=== PATIENT | female | born 1975 ===

== ENCOUNTER 2020-05-31 09:07 | Outpatient (REF) | payer MEDICARE, OTHER, SELFPAY ==
--- NOTE | 2020-05-31 | CT_ITS ---
EXAMINATION: CT CHEST WITHOUT CONTRAST CLINICAL INFORMATION: Solitary pulmonary nodule. COMPARISON: CT chest 05/31/2020 TECHNIQUE: Multidetector volumetric CT imaging of the chest was done. Axial MIP volume rendering provided. Sagittal and coronal reformatted images were obtained. This CT examination was performed using dose optimization techniques as appropriate, variously including the following: *Automated exposure control *Adjustment of mA and/or kV according to patient size (this includes techniques or standardized protocols for targeted exams where dose is matched to indication/reason for exam; i.e. extremities or head) *Use of iterative reconstruction technique DLP: 128 mGy-cm FINDINGS: ASSISTANT WINEMAKER: Unremarkable. LUNGS: The lungs are well expanded and clear of acute pneumonic consolidation. There is a 4 mm nodule left lung base image 449/7, stable. No additional lymph nodes seen. Mild atelectatic changes seen in the left lung base, lingula and right lower lobe. MEDIASTINUM: The thyroid lobes are symmetrical and normal. The central trachea and the bronchi are widely patent. Heart size and the great vessels are normal caliber. No abnormal size mediastinal lymph nodes or mass seen. There is no pericardial effusion. PLEURA: There is no pleural effusion. No pleural mass or thickening. AXILLA: There are small shotty lymph nodes in the axilla. There is a small loop recorder or a demand pacer in the left anterior chest wall. UPPER ABDOMEN: Visualized liver, spleen, pancreas and bilateral adrenal glands are unremarkable. OSSEOUS STRUCTURES: No lytic or sclerotic process seen. CT/CT chest wo con IMPRESSION: Stable 4 mm nodule left lung base. As per Fleischner guidelines there is no follow up needed. If patient has high risk factors. Followup can be performed in 18-24 months.
== END 2020-05-31 09:08 | disposition home or self-care (01) ==
LOC: HO.CT 09:07
PROVIDERS: Visit Provider Hospitalist
DX: R91.1 Solitary pulmonary nodule (principal)
CPT/HCPCS: 71250

== ENCOUNTER → 2021-03-24 09:25 | Outpatient (BNVA) | payer OTHER, MEDICARE, SELFPAY | PROVIDERS: PCP Internal Medicine; Visit Provider Hospitalist | DX: M35.02 Sjogren syndrome with lung involvement (principal); R63.4 Abnormal weight loss; R91.1 Solitary pulmonary nodule; D64.9 Anemia, unspecified; R10.12 Left upper quadrant pain; Z79.899 Other long term (current) drug therapy | CPT/HCPCS: 99212 ==

== ENCOUNTER 2021-08-27 09:24 | Day surgery (SDC) | payer OTHER, MEDICARE, SELFPAY ==
[2021-08-27] VITALS (8 sets, daily range): BP systolic 119–150; BP diastolic 69–90; PULSE 70–86; RESP 16–18; TEMP 37.4–37.8; O2SAT 99–100; BMI 22.4
--- NOTE | ~2021-08-27 | FL_ITS ---
EXAMINATION: XR LUMBAR PUNCTURE CLINICAL INFORMATION: Sjogren's syndrome with lung involvement. COMPARISON: None. TECHNIQUE: Patient is very anxious and preferred IV sedation or relaxation blood patch. A blood patch cannot be performed immediately after lumbar puncture and was explained in detail by me and the chief of anesthesia. Following explaining fluoroscopy-guided lumbar puncture procedure, benefits and risks, a written consent was obtained. Patient was placed prone on the fluoroscopy table and low back area was cleaned and draped in the usual sterile manner. 1% lidocaine was injected overlying the L4-L5 disc level. A 22-gauge spinal needle was inserted from the skin intrathecally at the L4-L5 disc level under fluoroscopy. The stylet was removed and CSF was collected in 4 test tubes. Postprocedure stylet was reintroduced and needle withdrawn. Sterile Band-Aid applied postprocedure. Patient tolerated procedure extremely well. Conscious sedation was utilized during exam with 25 mcg of fentanyl and 1 mg of Versed and patient monitored for 1 hour during the exam by the radiologist and the IR nurse. Patient tolerated procedure extremely well. FINDINGS: On several images obtained under fluoroscopy, the visualized vertebral heights, alignment and disc heights are normal. A left paramidline approach needle placed at L4-L5 disc level. Approximately 15.5 mL of clear CSF fluid was collected in 4 test tubes and sent to lab as per referring physician orders. FLUOROSCOPY TIME: 0.9 minutes. DOSE AREA PRODUCT: 2.136 uGy-m2 (microgray-meter squared). FL/FL guided lumbar puncture LP IMPRESSION: Successful fluoroscopy-guided L4-L5 lumbar puncture performed. CSF collected was sent to lab as per referring physician's orders. After procedure was done, instructions were given to the patient, in case patient developed a headache, to come to the ER and a blood patch will be performed later by anesthesia.
[2021-08-27 09:57] LABS: UPreg QC Valid YES
[2021-08-27 09:58] LABS: Urine Pregnancy NEGATIVE (NEGATIVE)
[2021-08-27 10:25] LABS: MANUAL DIFF FLAG NO
[2021-08-27 10:27] LABS: Basophils Percent Auto 0.8 % (0-2); Eosinophils Absolute Auto 0.2 X10*3/uL (0.0-0.4); Eosinophils Percent Auto 4.5 % (0-4); Hematocrit 33.7 % (37.0-47.0); Hemoglobin 10.6 g/dl (12.0-16.0); Imm Gran Abs Auto 0.01 X10*3/uL (0.00-0.03); Imm Gran Pct Auto 0.2 % (0.0-0.4); Lymphocytes Absolute Auto 1.8 X10*3/uL (1.2-4.9); Lymphocytes Percent Auto 34.5 % (20-40); Mean Corpuscular HGB Conc 31.5 g/dl (31.0-35.0); Mean Corpuscular Hemoglobin 26.8 pg (27.0-33.0); Mean Corpuscular Volume 85.1 fL (80.0-98.0); Mean Platelet Volume 9.6 fL (9.4-12.3); Monocytes Absolute Auto 0.5 X10*3/uL (0.1-1.2); Monocytes Percent Auto 10.2 % (2-11); Neutrophils Absolute Auto 2.5 x10*3/uL (2.0-8.3); Neutrophils Percent Auto 49.8 % (45-73); Platelet Count 388 X10*3/uL (160-400); Red Blood Count 3.96 X10*6/uL (4.20-5.50); Red Cell Distribution Width 13.2 % (11.0-16.0); White Blood Count 5.1 X10*3/uL (4.8-10.8)
[2021-08-27 10:35] LABS: Prothrombin Time 11.2 SEC (9.9-13.0)
[2021-08-27 10:37] LABS: Partial Thromboplastin Time 47.1 SEC (24.1-38.0)
[2021-08-27 13:22] LABS: Glucose CSF 54 mg/dL
[2021-08-27 13:31] LABS: CSF Appearance Clear, Colorless; CSF Tube # 3
[2021-08-27] MEDS: oxyCODONE HCl Immed Release 5 MG TABLET PO (13:34)
[2021-08-27] MEDS: Lactated Ringers 1,000 ML 999 ML IV (13:36)
[2021-08-27 14:15] LABS: Appearance CSF CLEAR; CSF Tube # 1
[2021-08-27 14:16] LABS: Color CSF COLORLESS; Lymphocytes CSF 88 %; Neutrophils CSF 6 %; Red Blood Cell CSF 125 MM*3; White Blood Cell CSF 13 MM*3
[2021-08-27 14:17] LABS: Appearance CSF CLEAR; CSF Monos 3 %; CSF Monos 6 %; CSF Tube # 3; Color CSF COLORLESS; Lymphocytes CSF 96 %; Neutrophils CSF 15 %; Red Blood Cell CSF 3 MM*3; White Blood Cell CSF 6 MM*3
[2021-09-09 13:22] LABS: Albumin, CSF 21.1 mg/dL (8.0-42.0); IgG, CSF 1.7 mg/dL (0.8-7.7)
== END 2021-08-27 15:34 | disposition home or self-care (01) ==
PROVIDERS: Absent Provider Nurse Practitioner Family; PCP Internal Medicine; Visit Provider Radiology Diagnostic Radiology
PROC: 009U3ZZ Drainage of Spinal Canal, Percutaneous Approach (ICD-10-PCS; CPT 62270; principal; 2021-08-27 11:00)
DX: M35.02 Sjogren syndrome with lung involvement (principal); R63.4 Abnormal weight loss; Z68.22 Body mass index [BMI] 22.0-22.9, adult; R51.9 Headache, unspecified; R91.1 Solitary pulmonary nodule; D64.9 Anemia, unspecified; R10.12 Left upper quadrant pain; Z80.1 Family history of malignant neoplasm of trachea, bronchus and lung; Z79.899 Other long term (current) drug therapy
CPT/HCPCS: 36415; 62328; 81025; 82042; 82945; 85025; 85610; 85730; 87015; 87070; 87205; 89051; J2250; J3010

== ENCOUNTER → 2021-09-25 09:25 | Outpatient (BNVA) | payer OTHER, MEDICARE, SELFPAY | PROVIDERS: PCP Internal Medicine; Visit Provider Nurse Practitioner Family ==

== ENCOUNTER → 2021-12-25 09:28 | Outpatient (BNVA) | payer OTHER, MEDICARE, SELFPAY | PROVIDERS: PCP Internal Medicine; Visit Provider Nurse Practitioner Family | DX: Z13.89 Encounter for screening for other disorder (principal) ==

== ENCOUNTER → 2022-05-20 08:49 | Outpatient (BNVA) | payer OTHER, MEDICARE, SELFPAY | PROVIDERS: PCP Internal Medicine; Visit Provider Hospitalist | DX: J45.40 Moderate persistent asthma, uncomplicated (principal); Z23 Encounter for immunization; M35.02 Sjogren syndrome with lung involvement; R91.1 Solitary pulmonary nodule; R10.12 Left upper quadrant pain | CPT/HCPCS: 90471; 90686 ==

== ENCOUNTER → 2022-11-17 08:54 | Outpatient (BNVA) | payer OTHER, MEDICARE, SELFPAY | PROVIDERS: PCP Internal Medicine; Visit Provider Hospitalist | DX: J45.40 Moderate persistent asthma, uncomplicated (principal); M35.02 Sjogren syndrome with lung involvement; R91.1 Solitary pulmonary nodule; R63.4 Abnormal weight loss; D64.9 Anemia, unspecified; R10.12 Left upper quadrant pain; Z23 Encounter for immunization | CPT/HCPCS: 99212 ==

== ENCOUNTER 2023-05-25 09:13 | Outpatient (AMB) | payer OTHER, MEDICARE, SELFPAY ==
[2023-05-25 09:19] VITALS: BP 132/70; PULSE 64; O2SAT 100; BMI 21.0
--- NOTE | 2023-05-25 09:19 | A.OFFVIS_ITS ---
Intake Vital Signs 05/25/23 09:19 Height 5 ft 6 in Weight 130 lb 1.164 oz BMI 21.0 BP 132/70 Blood Pressure Location Lt brachial Position Sitting Pulse 64 Pulse Source Pulse Oximeter Pulse Oximetry (%) 100 Oxygen Delivery Method Room Air Intake Visit Reasons: COPD Cosmetic Consultant Required: No Allergies prednisone Allergy (Severe, Verified 05/25/23 09:21) Hallucinations HPI HPI Comments History of Present Illness Details The patient is a 48-year-old woman with a known history of Sjogren's on CellCept. She also has had issues with significant obstructive airway disease suggesting bronchiolitis. She has responded very well to the nebulized therapy. Patient also has pulmonary nodules. She did undergo pulmonary function studies recently that we looked in the office. It appears that her obstructive airway disease significantly improved. However, she states that her breathing has gotten worse now in these really cold frigid days. We did review her CT scan of the chest demonstrating stable 4 mm pulmonary nodule. The patient also on review her CT scans as other smaller nodules will continue monitoring them closely. She does have a history of lung cancer in the family and she is concerned about that. Patient has been a lifelong nonsmoker. She continues to have oral lesions. These lesions appear to be likely related to her connective tissue disease. The patient does get some relief from the magic mouthwash. However, she could also try hydrocortisone rinses to try to minimize irritation. She has had oral candidiasis in the past however. She is currently taking prophylactic fluconazole. ?04/14/2020 the patient is here for pulmonary follow-up visit. Overall she is doing well from a respiratory status. She does require her nebulized therapies regularly otherwise she starts becomes symptomatic. She does complaint of cough times and also some dyspnea on exertion. She has a hard time caring any objective because of increasing shortness of breath as well. She had her CellCept increased to 2 g a day due to her GI issues. Talk to be adding pancreatitis. In the meantime she has been dealing with headaches that is still not clear. She was started on medication for that as well. We did review her CT scan of the chest demonstrating 4 mm pulmonary nodule. Will plan to repeat the CT scan sometime this year. 11/17/2022 the patient is here for pulmonary follow-up visit. Overall she is doing okay. She is noticing episodes of chest congestion. Moderate severity. Intermittent. She responds well to the nebulized therapy specially the albuterol with ipratropium. She is no longer using the performance. She does continue to use the budesonide. The patient has been walking regularly. She has not had any recent imaging studies. She has not been on her immunosuppressant therapy which is reassuring. She is concerned about her worsening cough. She did try singular did help some. Therefore will going to go ahead and started. Will to also do allergy testing. The patient may be a good candidate for biologic therapy. 05/25/2023 the patient is here for a pulmonary follow-up visit. Since last we saw she had been doing fairly well. She did receive an IV infusion of NAD+ for 6 weeks which she felt that provide her better health and mental clearing. Patient subsequently stop all her medications except for her respiratory inhalers. For the last few days she has been noticing increasing chest tightness wheezing and cough. She attributes to the change in season. We did look at her blood work and she is highly allergic to mold, R10 area. Likely due to the fall in the wet leaves that are likely worsening does allergies. She did try the DuoNeb but it caused her to have more dryness. Therefore will go ahead and switch her over to albuterol. The patient also does better on Ventolin inhaler as opposed to ProAir. I will send their doctor the pharmacy. She does have some congestion and a prolonged expiratory phase with some wheezing. Therefore she will also get a Z-Luis M and a Medrol pack. She is reluctant to use any steroids so therefore she will just hold off on the Medrol for now unless she gets worse. [facility] Medical History Anemia Asthma LUQ pain Pulmonary nodule Sjogren's syndrome with lung involvement Weight loss Surgical History H/O shoulder surgery Family History Father Asthma Cancer HTN (hypertension) Mother Thyroid disease Osteoporosis Social History (Updated 06/02/22 @ 14:24 by Ruthy Roa CMA) Household Members: Family Alcohol intake: former Patient Tobacco Use Status: Never used Tobacco Second Hand Smoke Exposure: No Current occupational status: disabled Review of Systems Const Denies night sweats and Reports weight gain ENT Denies change in voice, Denies lip swelling, Denies mouth pain, Reports nasal congestion, Reports nasal discharge and Denies tongue swelling Card Denies chest pain and Reports dyspnea on exertion Resp Reports chest congestion, Reports cough, Reports dyspnea on exertion and Reports wheezing GI Reports abdominal pain and Reports nausea Musc Denies no additional complaints Neuro Denies Neuro-related abnormal movements Psych Denies no additional complaints Sherwin/Lymph Denies easy bleeding and Denies lymphadenopathy Aller/Immun Denies lip swelling, Denies tongue swelling and Reports wheezing Physical Exam Vital Signs: Last Vital Signs Pulse 64 05/25/23 09:19 BP 132/70 05/25/23 09:19 Pulse Ox 100 05/25/23 09:19 Oxygen Delivery Method Room Air 05/25/23 09:19 BMI result Body Mass Index 21.0 Const General: alert Neck Neck: Yes normal visual inspection, Yes full ROM and Yes no lymphadenopathy Chest Chest palpation & inspection: normal inspection of the chest Resp Effort & Inspection: normal respiratory effort and prolonged expiratory phase Auscultation: wheezes and diminished lung sounds Cardio Rate: regular rate Rhythm: regular rhythm Heart sounds: S1 normal heart sound present and S2 normal heart sound present GI Palpation (GI): Soft to palpation and nontender Auscultation: normal bowel sounds General: Yes no CVA tenderness Back/Spine/Pelvis Back: no CVA tenderness Skin General skin exam: rashes and/or lesions noted Assessment & Plan Assessment & Plan (1) Asthma: Code(s): J45.909 - Unspecified asthma, uncomplicated Qualifiers: Asthma complication type: with acute exacerbation Asthma persistence: persistent Asthma severity: moderate Qualified Code(s): J45.41 - Moderate persistent asthma with (acute) exacerbation (2) Sjogren's syndrome with lung involvement: Code(s): M35.02 - Sjogren syndrome with lung involvement (3) Weight loss: Code(s): R63.4 - Abnormal weight loss (4) Pulmonary nodule: Code(s): R91.1 - Solitary pulmonary nodule Plan holding BUdesonide stop Duoneb2 start albuterol start zpack Medrol pack if no better hypertonic saline via neb followed by CPT with acapella valve KULWINDER as needed stopped Singulair (drying) F/U 4-6 months Medications: New azithromycin 500 mg PO DAILY 5 days 5 tabs 0RF sodium chloride 3% 4 mL inhalation BID 30 days 240 mL 11RF albuterol sulfate 2.5 mg (3 mL) inhalation Q4H 30 days PRN 360 mL 11RF shortness of breath or wheezing albuterol sulfate 90 mcg/actuation (Ventolin HFA) 2 puffs inhalation QID 30 days PRN 18 grams 11RF shortness of breath or wheezing methylprednisolone (Medrol (Luis M)) PO PER PKG DIR 6 days 21 ea 0RF Coding Level of Care Code Est Pt Level 4 (07925) Diagnoses Moderate persistent asthma with acute exacerbation J45.41 Asthma complication type: with acute exacerbation Asthma persistence: persistent Asthma severity: moderate Sjogren's syndrome with lung involvement M35.02 Weight loss R63.4 Pulmonary nodule R91.1 Time Spent (min) 17
== END 2023-05-25 09:53 | disposition home or self-care (01) ==
PROVIDERS: PCP Internal Medicine; Visit Provider Hospitalist
DX: J45.41 Moderate persistent asthma with (acute) exacerbation (principal); M35.02 Sjogren syndrome with lung involvement; R63.4 Abnormal weight loss; R91.1 Solitary pulmonary nodule
CPT/HCPCS: 99214

== ENCOUNTER → 2023-05-25 09:13 | Outpatient (BNVA) | payer OTHER, MEDICARE, SELFPAY | PROVIDERS: PCP Internal Medicine; Visit Provider Hospitalist | DX: J45.909 Unspecified asthma, uncomplicated (principal); Z23 Encounter for immunization ==

== ENCOUNTER 2023-11-30 09:11 | Outpatient (AMB) | payer OTHER, MEDICARE, SELFPAY ==
--- NOTE | 2023-11-30 09:13 | A.OFFVIS_ITS ---
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 She also has had issues with significant obstructive airway disease suggesting bronchiolitis. She has responded very well to the nebulized therapy. Patient also has pulmonary nodules. She did undergo pulmonary function studies recently that we looked in the office. It appears that her obstructive airway disease significantly improved. However, she states that her breathing has gotten worse now in these really cold frigid days. We did review her CT scan of the chest demonstrating stable 4 mm pulmonary nodule. The patient also on review her CT scans as other smaller nodules will continue monitoring them closely. She does have a history of lung cancer in the family and she is concerned about that. Patient has been a lifelong nonsmoker. She continues to have oral lesions. These lesions appear to be likely related to her connective tissue disease. The patient does get some relief from the magic mouthwash. However, she could also try hydrocortisone rinses to try to minimize irritation. She has had oral candidiasis in the past however. She is currently taking prophylactic fluconazole. ?04/14/2020 the patient is here for pulmonary follow-up visit. Overall she is doing well from a respiratory status. She does require her nebulized therapies regularly otherwise she starts becomes symptomatic. She does complaint of cough times and also some dyspnea on exertion. She has a hard time caring any objective because of increasing shortness of breath as well. She had her CellCept increased to 2 g a day due to her GI issues. Talk to be adding pancreatitis. In the meantime she has been dealing with headaches that is still not clear. She was started on medication for that as well. We did review her CT scan of the chest demonstrating 4 mm pulmonary nodule. Will plan to repeat the CT scan sometime this year. 11/17/2022 the patient is here for pulmonary follow-up visit. Overall she is doing okay. She is noticing episodes of chest congestion. Moderate severity. Intermittent. She responds well to the nebulized therapy specially the albuterol with ipratropium. She is no longer using the performance. She does continue to use the budesonide. The patient has been walking regularly. She has not had any recent imaging studies. She has not been on her immunosuppressant therapy which is reassuring. She is concerned about her wor sening cough. She did try singular did help some. Therefore will going to go ahead and started. Will to also do allergy testing. The patient may be a good candidate for biologic therapy. 05/25/2023 the patient is here for a pulmonary follow-up visit. Since last we saw she had been doing fairly well. She did receive an IV infusion of NAD+ for 6 weeks which she felt that provide her better health and mental clearing. Patient subsequently stop all her medications except for her respiratory inhalers. For the last few days she has been noticing increasing chest tightness wheezing and cough. She attributes to the change in season. We did look at her blood work and she is highly allergic to mold, R10 area. Likely due to the fall in the wet leaves that are likely worsening does allergies. She did try the DuoNeb but it caused her to have more dryness. Therefore will go ahead and switch her over to albuterol. The patient also does better on Ventolin inhaler as opposed to ProAir. I will send their doctor the pharmacy. She does have some congestion and a prolonged expiratory phase with some wheezing. Therefore she will also get a Z-Luis M and a Medrol pack. She is reluctant to use any steroids so therefore she will just hold off on the Medrol for now unless she gets worse. 11/30/2023 the patient is here for a pulmonary follow-up visit overall she has been she has been walking regularly and exercising. She has been using her rescue inhaler. Ventolin seems to be the only rescue inhaler that works well for her. Unfortunately her insurance not covering it. In addition to that albuterol treatments with the neb via the nebulizer actually become the most effective way of treating her asthma. The patient would benefit from like a mesh nebulizer. She will look into them as far as an investment. I do believe that if she can get a much nebulizer she can get a rapid treatment with an albuterol ampule and better response to therapy. The patient has not had any imaging studies this time. She did have abdominal discomfort several weeks ago the were severe that kept her bed-bound for about 3 days. I did encourage her to seek medical advice when that happens because she will need to rule out other etiologies that will require immediate attention. She is following closely with dermatology. She still continues to be off all immunomodulator therapy and immunosuppressive therapy and just been treating herself with holistic approaches. The patient will undergo blood work in addition to that will start using the mesh nebulizer. She will follow-up in 6 months or sooner if she develops any worsening symptoms. [facility] Medical History Anemia Asthma LUQ pain Pulmonary nodule Sjogren's syndrome with lung involvement Weight loss Surgical History H/O shoulder surgery Family History Father Asthma Cancer HTN (hypertension) Mother Thyroid disease Osteoporosis Social History (Updated 06/02/22 @ 14:24 by Ruthy Roa CMA) Household Members: Family Alcohol intake: former Patient Tobacco Use Status: Never used Tobacco Second Hand Smoke Exposure: No Current occupational status: disabled Review of Systems Const Denies night sweats and Reports weight gain ENT Denies change in voice, Denies lip swelling, Denies mouth pain, Reports nasal congestion, Reports nasal discharge and Denies tongue swelling Card Denies chest pain and Reports dyspnea on exertion Resp Reports chest congestion, Reports cough, Reports dyspnea on exertion and Reports wheezing GI Reports abdominal pain and Reports nausea Musc Denies no additional complaints Neuro Denies Neuro-related abnormal movements Psych Denies no additional complaints Sherwin/Lymph Denies easy bleeding and Denies lymphadenopathy Aller/Immun Denies lip swelling, Denies tongue swelling and Reports wheezing Physical Exam Vital Signs: Last Vital Signs Pulse 61 11/30/23 09:15 Pulse Ox 100 11/30/23 09:15 Oxygen Delivery Method Room Air 11/30/23 09:15 BMI result Body Mass Index 21.0 Const General: alert Neck Neck: Yes normal visual inspection, Yes full ROM and Yes no lymphadenopathy Chest Chest palpation & inspection: normal inspection of the chest Resp Effort & Inspection: normal respiratory effort and prolonged expiratory phase Auscultation: clear to auscultation bilaterally and no wheezes Cardio Rate: regular rate Rhythm: regular rhythm Heart sounds: S1 normal heart sound present and S2 normal heart sound present GI Palpation (GI): Soft to palpation and nontender Auscultation: normal bowel sounds General: Yes no CVA tenderness Back/Spine/Pelvis Back: no CVA tenderness Skin General skin exam: rashes and/or lesions noted Assessment & Plan Assessment & Plan (1) Asthma: Code(s): J45.909 - Unspecified asthma, uncomplicated Category: Medical Qualifiers: Asthma complication type: uncomplicated Asthma persistence: persistent Asthma severity: moderate Qualified Code(s): J45.40 - Moderate persistent asthma, uncomplicated (2) Sjogren's syndrome with lung involvement: Code(s): M35.02 - Sjogren syndrome with lung involvement Category: Medical (3) Weight loss: Code(s): R63.4 - Abnormal weight loss Category: Medical (4) Pulmonary nodule: Code(s): R91.1 - Solitary pulmonary nodule Category: Medical (5) Anemia: Code(s): D64.9 - Anemia, unspecified Category: Medical Qualifiers: Anemia type: unspecified type Qualified Code(s): D64.9 - Anemia, unspecified (6) LUQ pain: Code(s): R10.12 - Left upper quadrant pain Category: Medical Plan start albuterol with mesh nebulizer hypertonic saline via neb followed by CPT with acapella valve KULWINDER as needed stopped Singulair (drying) bloodwork F/U 4-6 months Orders: Orders 2 Immunoglobulin E Today D64.9 - Anemia, unspecified, M35.02 - Sjogren syndrome with lung involvement, R10.12 - Left upper quadrant pain Lactate Dehydrogenase Today D64.9 - Anemia, unspecified, M35.02 - Sjogren syndrome with lung involvement, R10.12 - Left upper quadrant pain Lactic Acid Today D64.9 - Anemia, unspecified, M35.02 - Sjogren syndrome with lung involvement, R10.12 - Left upper quadrant pain Immunoglobulins,IgG IgA IgM Today D64.9 - Anemia, unspecified, M35.02 - Sjogren syndrome with lung involvement, R10.12 - Left upper quadrant pain Coding Level of Care Code Est Pt Level 4 (38904) Diagnoses Moderate persistent asthma without complication J45.40 Asthma complication type: uncomplicated Asthma persistence: persistent Asthma severity: moderate Sjogren's syndrome with lung involvement M35.02 Weight loss R63.4 Pulmonary nodule R91.1 Anemia, unspecified type D64.9 Anemia type: unspecified type LUQ pain R10.12 Time Spent (min) 17
[2023-11-30 09:15] VITALS: PULSE 61; O2SAT 100; BMI 21.0
== END 2023-11-30 09:41 | disposition home or self-care (01) ==
PROVIDERS: PCP Internal Medicine; Visit Provider Hospitalist
DX: J45.40 Moderate persistent asthma, uncomplicated (principal); M35.02 Sjogren syndrome with lung involvement; R63.4 Abnormal weight loss; R91.1 Solitary pulmonary nodule; D64.9 Anemia, unspecified; R10.12 Left upper quadrant pain
CPT/HCPCS: 99214

== ENCOUNTER → 2023-11-30 09:11 | Outpatient (BNVA) | payer OTHER, MEDICARE, SELFPAY | PROVIDERS: PCP Internal Medicine; Visit Provider Hospitalist | DX: J45.909 Unspecified asthma, uncomplicated (principal); Z23 Encounter for immunization ==

== ENCOUNTER 2024-06-19 09:38 | Outpatient (AMB) | payer OTHER, MEDICARE, SELFPAY ==
[2024-06-19 09:39] VITALS: BP 128/78; PULSE 89; O2SAT 100
--- NOTE | 2024-06-19 09:39 | A.OFFVIS_ITS ---
Vital Signs 06/19/24 09:39 Weight 135 lb 9.349 oz BP 128/78 Blood Pressure Location Lt brachial Position Sitting Pulse 89 Pulse Source Pulse Oximeter Pulse Oximetry (%) 100 Oxygen Delivery Method Room Air Intake Visit Reasons: COPD Allergies prednisone Allergy (Severe, Verified 06/19/24 09:42) Hallucinations Medication List - Last Reconciled 06/19/24 by Ruthy Mullins, BERRY albuterol sulfate 2.5 mg (3 mL) inhalation Q4H PRN 30 days albuterol sulfate 90 mcg/actuation (Ventolin HFA) 2 puffs inhalation QID PRN 30 days [id number]-napzltqosdngt-[id number] 50-325-40 mg 1 tab PO Q6H PRN 30 days cyclosporine 0.05% (Restasis) drps ophthalmic (eye) dexmethylphenidate 10 mg PO BID formoterol fumarate (Perforomist) 20 mcg (2 mL) inhalation BID hydroxyzine HCl 25 mg PO BID PRN indomethacin 25 mg PO TID PRN 30 days ipratropium-albuterol 0.5 mg-3 mg(2.5 mg base)/3 mL 3 mL inhalation QID 30 days ipratropium-albuterol 20-100 mcg/actuation (Combivent Respimat) 1 puff inhalation QID 30 days melatonin ER 10 mg PO BEDTIME PRN methylphenidate HCl ER (Concerta) 54 mg PO DAILY PRN nebulizers As directed ondansetron HCl 4 mg PO Q8H PRN sodium chloride 3% 4 mL inhalation BID 30 days HPI Comments Details: The patient is a 49-year-old woman with a known history of Sjogren's on CellCept. She also has had issues with significant obstructive airway disease suggesting bronchiolitis. She has responded very well to the nebulized therapy. Patient also has pulmonary nodules. She did undergo pulmonary function studies recently that we looked in the office. It appears that her obstructive airway disease significantly improved. However, she states that her breathing has gotten worse now in these really cold frigid days. We did review her CT scan of the chest demonstrating stable 4 mm pulmonary nodule. The patient also on review her CT scans as other smaller nodules will continue monitoring them closely. She does have a history of lung cancer in the family and she is concerned about that. Patient has been a lifelong nonsmoker. She continues to have oral lesions. These lesions appear to be likely related to her connective tissue disease. The patient does get some relief from the magic mouthwash. However, she could also try hydrocortisone rinses to try to minimize irritation. She has had oral candidiasis in the past however. She is currently taking prophylactic fluconazole. ?04/14/2020 the patient is here for pulmonary follow-up visit. Overall she is doing well from a respiratory status. She does require her nebulized therapies regularly otherwise she starts becomes symptomatic. She does complaint of cough times and also some dyspnea on exertion. She has a hard time caring any objective because of increasing shortness of breath as well. She had her CellCept increased to 2 g a day due to her GI issues. Talk to be adding pancreatitis. In the meantime she has been dealing with headaches that is still not clear. She was started on medication for that as well. We did review her CT scan of the chest demonstrating 4 mm pulmonary nodule. Will plan to repeat the CT scan sometime this year. 11/17/2022 the patient is here for pulmonary follow-up visit. Overall she is doing okay. She is noticing episodes of chest congestion. Moderate severity. Intermittent. She responds well to the nebulized therapy specially the albuterol with ipratropium. She is no longer using the performance. She does continue to use the budesonide. The patient has been walking regularly. She has not had any recent imaging studies. She has not been on her immunosuppressant therapy which is reassuring. She is concerned about her worsening cough. She did try singular did help some. Therefore will going to go ahead and started. Will to also do allergy testing. The patient may be a good candidate for biologic therapy. 05/25/2023 the patient is here for a pulmonary follow-up visit. Since last we saw she had been doing fairly well. She did receive an IV infusion of NAD+ for 6 weeks which she felt that provide her better health and mental clearing. Patient subsequently stop all her medications except for her respir atory inhalers. For the last few days she has been noticing increasing chest tightness wheezing and cough. She attributes to the change in season. We did look at her blood work and she is highly allergic to mold, R10 area. Likely due to the fall in the wet leaves that are likely worsening does allergies. She did try the DuoNeb but it caused her to have more dryness. Therefore will go ahead and switch her over to albuterol. The patient also does better on Ventolin inhaler as opposed to ProAir. I will send their doctor the pharmacy. She does have some congestion and a prolonged expiratory phase with some wheezing. Therefore she will also get a Z-Luis M and a Medrol pack. She is reluctant to use any steroids so therefore she will just hold off on the Medrol for now unless she gets worse. 11/30/2023 the patient is here for a pulmonary follow-up visit overall she has been she has been walking regularly and exercising. She has been using her rescue inhaler. Ventolin seems to be the only rescue inhaler that works well for her. Unfortunately her insurance not covering it. In addition to that albuterol treatments with the neb via the nebulizer actually become the most effective way of treating her asthma. The patient would benefit from like a mesh nebulizer. She will look into them as far as an investment. I do believe that if she can get a much nebulizer she can get a rapid treatment with an albuterol ampule and better response to therapy. The patient has not had any imaging studies this time. She did have abdominal discomfort several weeks ago the were severe that kept her bed-bound for about 3 days. I did encourage her to seek medical advice when that happens because she will need to rule out other etiologies that will require immediate attention. She is following closely with dermatology. She still continues to be off all immunomodulator therapy and immunosuppressive therapy and just been treating herself with holistic approaches. The patient will undergo blood work in addition to that will start using the mesh nebulizer. She will follow-up in 6 months or sooner if she develops any worsening symptoms. 06/19/2024 the patient is here for a pulmonary follow-up been doing well from a respiratory status. Although now going into the winter months this is when her breathing gets a little tougher. She does have a nebulized solution available. The patient also has been avoiding any immunosuppressive therapy. She is dealing with her inflammatory flare-ups on her own. She is staying active with exercise. She is also pain a healthier diet. No recent imaging to review at this time. [facility] Medical History Anemia Asthma LUQ pain Pulmonary nodule Sjogren's syndrome with lung involvement Weight loss Surgical History H/O shoulder surgery Family History Father Asthma Cancer HTN (hypertension) Mother Thyroid disease Osteoporosis Social History (Updated 06/02/22 @ 14:24 by Ruthy Roa CMA) Household Members: Family Alcohol intake: former Patient Tobacco Use Status: Never used Tobacco Second Hand Smoke Exposure: No Current occupational status: disabled Review of Systems Const Denies night sweats ENT Denies change in voice, Denies lip swelling, Denies mouth pain, Reports nasal congestion, Reports nasal discharge and Denies tongue swelling Card Denies chest pain and Reports dyspnea on exertion Resp Denies chest congestion, Reports cough, Reports dyspnea on exertion and Reports wheezing GI Reports abdominal pain and Reports nausea Musc Denies no additional complaints Neuro Denies Neuro-related abnormal movements Psych Denies no additional complaints Sherwin/Lymph Denies easy bleeding and Denies lymphadenopathy Aller/Immun Denies lip swelling, Denies tongue swelling and Reports wheezing Physical Exam Vital Signs: Last Vital Signs Pulse 89 06/19/24 09:39 BP 128/78 06/19/24 09:39 Pulse Ox 100 06/19/24 09:39 Oxygen Delivery Method Room Air 06/19/24 09:39 Const General: alert Neck Neck: Yes normal visual inspection, Yes full ROM and Yes no lymphadenopathy Chest Chest palpation & inspection: normal inspection of the chest Resp Effort & Inspection: normal respiratory effort Auscultation: clear to auscultation bilaterally and no wheezes Cardio Rate: regular rate Rhythm: regular rhythm Heart sounds: S1 normal heart sound present and S2 normal heart sound present GI Palpation (GI): Soft to palpation and nontender Auscultation: normal bowel sounds General: Yes no CVA tenderness Back/Spine/Pelvis Back: no CVA tenderness Skin General skin exam: rashes and/or lesions noted Assessment & Plan Assessment & Plan (1) Asthma: Code(s): J45.909 - Unspecified asthma, uncomplicated Category: Medical Qualifiers: Asthma complication type: uncomplicated Asthma persistence: persistent Asthma severity: moderate Qualified Code(s): J45.40 - Moderate persistent asthma, uncomplicated (2) Sjogren's syndrome with lung involvement: Code(s): M35.02 - Sjogren syndrome with lung involvement Category: Medical (3) Pulmonary nodule: Code(s): R91.1 - Solitary pulmonary nodule Category: Medical (4) Anemia: Code(s): D64.9 - Anemia, unspecified Category: Medical Qualifiers: Anemia type: unspecified type Qualified Code(s): D64.9 - Anemia, unspecified (5) LUQ pain: Code(s): R10.12 - Left upper quadrant pain Category: Medical Plan albuterol with mesh nebulizer hypertonic saline via neb followed by CPT with acapella valve KULWINDER as needed lidoderm patch F/U 6-8 months Medications: New lidocaine 5% (Lidoderm) leave on most painful area for up to 12 hrs 1 patch topical DAILY 30 ea 5RF 30 days G89.12 - Acute post-thoracotomy pain Refilled sodium chloride 3% 4 mL inhalation BID 30 days 240 mL 11RF albuterol sulfate 2.5 mg (3 mL) inhalation Q4H PRN 360 mL 11RF shortness of breath or wheezing 30 days Discontinued formoterol fumarate (Perforomist) Discontinued Reason: Doctor's Order 20 mcg (2 mL) inhalation BID 120 mL 0RF Coding Level of Care Code Est Pt Level 4 (77466) Diagnoses Moderate persistent asthma without complication J45.40 Asthma complication type: uncomplicated Asthma persistence: persistent Asthma severity: moderate Sjogren's syndrome with lung involvement M35.02 Pulmonary nodule R91.1 Anemia, unspecified type D64.9 Anemia type: unspecified type LUQ pain R10.12 Time Spent (min) 16
== END 2024-06-19 10:00 | disposition home or self-care (01) ==
PROVIDERS: PCP Internal Medicine; Visit Provider Hospitalist
DX: J45.40 Moderate persistent asthma, uncomplicated (principal); M35.02 Sjogren syndrome with lung involvement; R91.1 Solitary pulmonary nodule; D64.9 Anemia, unspecified; R10.12 Left upper quadrant pain
CPT/HCPCS: 99214

== ENCOUNTER → 2024-06-19 09:38 | Outpatient (BNVA) | payer OTHER, MEDICARE, SELFPAY | PROVIDERS: PCP Internal Medicine; Visit Provider Hospitalist | DX: J45.909 Unspecified asthma, uncomplicated (principal); Z23 Encounter for immunization; R10.12 Left upper quadrant pain; D64.9 Anemia, unspecified; M35.02 Sjogren syndrome with lung involvement ==

== ENCOUNTER 2025-04-03 10:03 | Outpatient (AMB) | payer OTHER, MEDICARE, SELFPAY ==
--- OUTSIDE RECORDS SUMMARY | 2016-09-10 01:00 | XMS_ITS | Encounter Summary ---
Author Organization [facility] Address [address] [place] [id number] Phone Care Team Providers Care Yard Stocker Name Role Phone Axel Graves MD Primary Care Provider [phone] Reason for Visit * MRI/CAT Scan - Closed Specialty Diagnoses / Procedures Referred By Maggy herring Referred To Contact Procedures CT Chest Outside (No Interpretation) Augusto Kim MD [facility]/Admin [place]/Floor [address] [place], [place] Phone: tel: fax: mailto:[email or web address] Referral ID Status Reason Start Date Expiration Date Visits Re quested Visits Authorized [id number] Closed 01/18/2017 01/18/2018 1 1 Encounter Details Date Type Department Care Team (Late st Contact Info) Description 09/10/2016 Hospital Encounter [facility] [address] [place] [address] Augusto Kim MD 15 [facility]/Admin Bl/[place]pe [facility]/Floor [address] [place] [address] [email or web address]. [place] Social History Tobacco Use Types Packs/Day Years Used Date Smoking Tobacco: Never Smokeless Tobacco: Never Alcohol Use Standard Drinks/Week Comments No 0 (1 standard drink = 0.6 oz pur e alcohol) Child or Family Care Answer Date Record ed Do you have problems with on e of the following making it difficult for you to work, study, or receive health care? No 10/28/2022 Education Answer Date Recorded Are you interested in more education? Not on marco a e 10/29/2024 Are you concerned about learning? Not on file 10/29/2024 No 10/29/2024 No 10/29/2024 Food Answer Date Recorded Within the past 6 months we worried whether our food would run out before we got money to buy more. I choose not to answer 10/28/2022 Within the past 6 months the food we bought just didn't last and we didn't have enough money to get more. I choose not to answer 10/28/2022 Residential Stability Answer Date Recor ded What is your housing situation today? I have soumya matthew 10/28/2022 How many times have you move d in the past 12 months? Zero (I did not move) 10/28/2022 Paying for Meds Answer Date Recorded Do you have trouble paying for medicines? Yes 10/28/2022 Paying Utility Bills Answer Date Record ed Do you have trouble paying y our heating or electricity bill? I choose not to answer 10/28/2022 Transportation Answer Date Recorded Has the lack of transportati on kept you from medical appointments or from getting medications? I choose not to answer 10/28/2022 Unemployment Answer Date Recorded Are you currently unemployed or working on a part-time or temporary basis, and looking for work? No 10/28/2022 Digital Access Answer Date Recorded No 12/20/2022 No 12/20/2022 Reliable internet access at home? Not on file 12/20/2022 Device with a working camera? Not on file Comments Unknown Sex and Gender Information Value Date Recorded Sex Assigned at Female 01/10/2020 6:56 PM EDT Legal Sex Female 5:12 PM EST Gender Identity Female 01/10/2020 6:56 PM EDT Sexual Orientation Straight 01/10/2020 6: 56 PM EDT documented as of this encounter Plan of Treatment Upcoming Encounters Date Type Department Care Team (Late st Contact Info) Description 06/07/2024 Procedure Pass [facility] Cardiac US [address] [place] [address] 06/12/2026 9:30 AM EST Appointment [facility] Cardiac US [address] [place] [address] Yara Ingram, [employer]S CATALOG[employer]ER [address] [place] [address] [email or web address] 06/12/2026 10:30 AM EST Office Visit [facility] Cardiovascular Medicine [address] [facility], 5th Floor, [address] [place] [address] Yara Ingram, [employer]S CATALOGUER [address] [place] [address] [email or web address] documented as of this encounter Procedures Procedure Name Priority Date/Time Associated Diagnosis Comments CT CHEST OUTSIDE (NO INTERPRETATION) Routine 09/10/2016 12:00 AM EST documented in this encounter Results * CT Chest Outside (No Interpretation) (09/10/2016 12:00 AM EST) Narrative [facility] IMG INTERFACES - 01/18/2017 3:55 PM EDT This study is for PACS storage only and not for interpretation. Augusto Kim MD IMG OUTSIDE IMAGING W/OUT INTERP RETATION Final Result [facility] IMG INTERFACES documented in this encounter Visit Diagnoses Not on filedocumented in this encounter Care Teams Yard Stocker Relationship Specialty Start Date End Date Axel Graves MD [address] [place] [id number] PCP - General Internal Medicine 03/05/15 04/14/21 documented as of this encounter Additional Source Comments The information contained in this document represents components of the legal health record. It is not the complete legal health record.[facility]
[2025-04-03 10:05] VITALS: BP 124/76; PULSE 69; O2SAT 100; BMI 22.9
--- NOTE | 2025-04-03 10:05 | A.OFFVIS_ITS ---
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 She also has had issues with significant obstructive airway disease suggesting bronchiolitis. She has responded very well to the nebulized therapy. Patient also has pulmonary nodules. She did undergo pulmonary function studies recently that we looked in the office. It appears that her obstructive airway disease significantly improved. However, she states that her breathing has gotten worse now in these really cold frigid days. We did review her CT scan of the chest demonstrating stable 4 mm pulmonary nodule. The patient also on review her CT scans as other smaller nodules will continue monitoring them closely. She does have a history of lung cancer in the family and she is concerned about that. Patient has been a lifelong nonsmoker. She continues to have oral lesions. These lesions appear to be likely related to her connective tissue disease. The patient does get some relief from the magic mouthwash. However, she could also try hydrocortisone rinses to try to minimize irritation. She has had oral candidiasis in the past however. She is currently taking prophylactic fluconazole. ?04/14/2020 the patient is here for pulmonary follow-up visit. Overall she is doing well from a respiratory status. She does require her nebulized therapies regularly otherwise she starts becomes symptomatic. She does complaint of cough times and also some dyspnea on exertion. She has a hard time caring any objective because of increasing shortness of breath as well. She had her CellCept increased to 2 g a day due to her GI issues. Talk to be adding pancreatitis. In the meantime she has been dealing with headaches that is still not clear. She was started on medication for that as well. We did review her CT scan of the chest demonstrating 4 mm pulmonary nodule. Will plan to repeat the CT scan sometime this year. 11/17/2022 the patient is here for pulmonary follow-up visit. Overall she is doing okay. She is noticing episodes of chest congestion. Moderate severity. Intermittent. She responds well to the nebulized therapy specially the albuterol with ipratropium. She is no longer using the performance. She does continue to use the budesonide. The patient has been walking regularly. She has not had any recent imaging studies. She has not been on her immunosuppressant therapy which is reassuring. She is concerned about her worsening cough. She did try singular did help some. Therefore will going to go ahead and started. Will to also do allergy testing. The patient may be a good candidate for biologic therapy. 05/25/2023 the patient is here for a pulmonary follow-up visit. Since last we saw she had been doing fairly well. She did receive an IV infusion of NAD+ for 6 weeks which she felt that provide her better health and mental clearing. Patient subsequently stop all her medications except for her respiratory inhalers. For the last few days she has been noticing increasing chest tightness wheezing and cough. She attributes to the change in season. We did look at her blood work and she is highly allergic to mold, R10 area. Likely due to the fall in the wet leaves that are likely worsening does allergies. She did try the DuoNeb but it caused her to have more dryness. Therefore will go ahead and switch her over to albuterol. The patient also does better on Ventolin inhaler as opposed to ProAir. I will send their doctor the pharmacy. She does have some congestion and a prolonged expiratory phase with some wheezing. Therefore she will also get a Z-Luis M and a Medrol pack. She is reluctant to use any steroids so therefore she will just hold off on the Medrol for now unless she gets worse. 11/30/2023 the patient is here for a pulmonary follow-up visit overall she has been she has been walking regularly and exercising. She has been using her rescue inhaler. Ventolin seems to be the only rescue inhaler that works well for her. Unfortunately her insurance not covering it. In addition to that albuterol treatments with the neb via the nebulizer actually become the most effective way of treating her asthma. The patient would benefit from like a mesh nebulizer. She will look into them as far as an investment. I do believe that if she can get a much nebulizer she can get a rapid treatment with an albuterol ampule and better response to therapy. The patient has not had any imaging studies this time. She did have abdominal discomfort several weeks ago the were severe that kept her bed-bound for about 3 days. I did encourage her to seek medical advice when that happens because she will need to rule out other etiologies that will require immediate attention. She is following closely with dermatology. She still continues to be off all immunomodulator therapy and immunosuppressive therapy and just been treating herself with holistic approaches. The patient will undergo blood work in addition to that will start using the mesh nebulizer. She will follow-up in 6 months or sooner if she develops any worsening symptoms. 06/19/2024 the patient is here for a pulmonary follow-up been doing well from a respiratory status. Although now going into the winter months this is when her breathing gets a little tougher. She does have a nebulized solution available. The patient also has been avoiding any immunosuppressive therapy. She is dealing with her inflammatory flare-ups on her own. She is staying active with exercise. She is also pain a healthier diet. No recent imaging to review at this time. 04/03/2025 the patient is here for pulmonary follow-up visit. She has the patient has had a very eventful summer. She has had significant issues with her pancreas with significant pancreatitis suspected to be related to her underlying Sjogren's some connective tissue disease. In addition to that she has had significant joint pains and also significant chronic fatigue. She has been sleeping most of the day. She has also intermittent fasting because her pancreatic issue. We did talk about looking for a medium chain fatty acid diet did help with her pancreatic issues. The patient also was recommended to start therapy for her active connective tissue disease. She is still contemplating that specially since she ended up with recurrent shingles. Currently she is on antiviral therapy in his seems to be controlling her shingles flare-up. The patient should get vaccinated once she is able to do so for that. Specially before she starts any immunosuppressive therapy. But for now she is going to consider starting Ritalin for her chronic fatigue and also is considering starting Plaquenil which is reasonable. From a pulmonary standpoint will go ahead and start her back on Symbicort that she can use twice a day. The patient follow-up in the springtime if she has any issues prior to this she will call for further recommendations. [facility] Medical History (Updated 04/03/25 @ 20:31 by Darrin Earl MD) Shingles Asthma LUQ pain Anemia Sjogren's syndrome with lung involvement Weight loss Pulmonary nodule Surgical History H/O shoulder surgery Family History Father Asthma Cancer HTN (hypertension) Mother Thyroid disease Osteoporosis Social History Household Members: Family Alcohol intake: former Patient Tobacco Use Status: Never used Tobacco Second Hand Smoke Exposure: No Current occupational status: disabled Review of Systems Const Reports daytime sleepiness and Denies night sweats ENT Denies change in voice, Denies lip swelling, Denies mouth pain, Reports nasal congestion, Reports nasal discharge and Denies tongue swelling Card Denies chest pain and Reports dyspnea on exertion Resp Denies chest congestion, Reports cough, Reports dyspnea on exertion and Reports wheezing GI Reports as per HPI, Reports abdominal pain and Reports nausea Musc Denies no additional complaints Neuro Denies Neuro-related abnormal movements Psych Denies no additional complaints Sherwin/Lymph Denies easy bleeding and Denies lymphadenopathy Aller/Immun Denies lip swelling, Denies tongue swelling and Reports wheezing Physical Exam Vital Signs: Last Vital Signs Pulse 69 04/03/25 10:05 BP 124/76 04/03/25 10:05 Pulse Ox 100 04/03/25 10:05 Oxygen Delivery Method Room Air 04/03/25 10:05 BMI result Body Mass Index 22.9 Const General: alert Neck Neck: Yes normal visual inspection, Yes full ROM and Yes no lymphadenopathy Chest Chest palpation & inspection: normal inspection of the chest Resp Effort & Inspection: normal respiratory effort Auscultation: clear to auscultation bilaterally and no wheezes Cardio Rate: regular rate Rhythm: regular rhythm Heart sounds: S1 normal heart sound present and S2 normal heart sound present GI Palpation (GI): Soft to palpation and nontender Auscultation: normal bowel sounds General: Yes no CVA tenderness Back/Spine/Pelvis Back: no CVA tenderness Skin General skin exam: rashes and/or lesions noted Assessment & Plan Assessment & Plan (1) Asthma: Code(s): J45.909 - Unspecified asthma, uncomplicated Category: Medical Qualifiers: Asthma complication type: uncomplicated Asthma persistence: persistent Asthma severity: moderate Qualified Code(s): J45.40 - Moderate persistent asthma, uncomplicated (2) Sjogren's syndrome with lung involvement: Code(s): M35.02 - Sjogren syndrome with lung involvement Category: Medical (3) Pulmonary nodule: Code(s): R91.1 - Solitary pulmonary nodule Category: Medical (4) Anemia: Code(s): D64.9 - Anemia, unspecified Category: Medical Qualifiers: Anemia type: unspecified type Qualified Code(s): D64.9 - Anemia, unspecified (5) Shingles: Code(s): B02.9 - Zoster without complications Category: Medical Qualifiers: Herpes zoster complications: without complications Qualified Code(s): B02.9 - Zoster without complications Plan albuterol with mesh nebulizer start Symbicort BID hypertonic saline via neb followed by CPT with acapella valve KULWINDER as needed lidoderm patch F/U 6-8 months Medications: New budesonide-formoterol 160-4.5 mcg/actuation 2 puffs inhalation BID 10.2 grams 11RF 30 days J44.89 - Other specified chronic obstructive pulmonary disease Coding Level of Care Code Est Pt Level 4 (28979) Diagnoses Moderate persistent asthma without complication J45.40 Asthma complication type: uncomplicated Asthma persistence: persistent Asthma severity: moderate Sjogren's syndrome with lung involvement M35.02 Pulmonary nodule R91.1 Anemia, unspecified type D64.9 Anemia type: unspecified type Herpes zoster without complication B02.9 Herpes zoster complications: without complications Time Spent (min) 17
--- OUTSIDE RECORDS SUMMARY | 2025-04-03 11:46 | XMS_ITS | Encounter Summary ---
Author Organization [facility] Address [address] [place] [id number] Care Team Providers Care Teenage Babysitter Name Role Phone Axel Graves MD Primary Care Provider [phone] Encounter Details Date Type Department Care Team (Late st Contact Info) Description 12/13/2019 Scanned Document [facility] [address] [place] [id number] Provider, MD Jenny [address] [place] [id number] Social History Tobacco Use Types Packs/Day Years Used Date Smoking Tobacco: Never Smokeless Tobacco: Never Alcohol Use Standard Drinks/Week Comments Never 0 (1 standard drink = 0.6 oz pur e alcohol) AUDIT-C Answer Date Recorded Frequency of Alcohol Consumption Never 04/17/2019 Average Number of Drinks Not on file 019 Frequency of Binge Drinking Not on file 03/27 Comments No Sex and Gender Information Value Date Recorded Sex Assigned at Not on file Legal Sex Female 8:07 AM EDT Gender Identity Not on file Sexual Orientation Not on file documented as of this encounter Plan of Treatment Not on file documented as of this encounter Visit Diagnoses Not on filedocumented in this encounter Care Teams Teenage Babysitter Relationship Specialty Start Date End Date Axel Graves MD [address] [place] [address] PCP - General 02/16/19 documented as of this encounter
--- OUTSIDE RECORDS SUMMARY | 2025-04-03 11:46 | XMS_ITS | Encounter Summary ---
Author Organization [facility] Address [address] [place] [address] Care Team Providers Care Quad Stayer Name Role Phone Axel Graves MD Primary Care Provider + [phone] Reason for Visit * Reason Comments Medication Refill Encounter Details Date Type Department Care Team (Late st Contact Info) Description 12/14/2021 Refill [facility] [address] [place] [address] Marichuy Manuel PA Left upper quadrant abdominal pain Social History Tobacco Use Types Packs/Day Years [...] on file documented as of this encounter Miscellaneous Notes * Telephone Encounter - LASHON Reyna - 12/15/2021 9:57 AM EDT Pt needs OV for further refills * Telephone Encounter - Cristin Martin MA - 12/15/2021 9:47 AM EDT ZEE 04/23/21 documented in this encounter Plan of Treatment Not on file documented as of this encounter Visit Diagnoses Diagnosis Left upper quadrant abdominal pain documented in this encounter Care Teams Quad Stayer Relationship Specialty Start Date End Date Axel Graves MD [address] [facility] [address] PCP - General 02/16/19 documented as of this encounter
--- OUTSIDE RECORDS SUMMARY | 2025-04-03 11:46 | XMS_ITS | Clinical Summary ---
Author Organization [facility] Address [address] [place] [address] Care Team Providers Care Fashion Coordinator Name Role Phone Axel Graves MD Primary Care Provider [phone] Allergies Active Allergy Reactions Criticality Noted Date Comments Prednisone 05/21/2021 Pt hallucinates she states. Medications Medication Sig Dispensed Refills Start Date End Date Status dexmethylphenidate (FOCALIN) 10 MG tablet Take 10 mg by mouth 2 (two) times a day. 0 Active cyproheptadine (PERIACTIN) 4 MG tablet Take by mouth. 0 Active ALPRAZolam (XANAX) 0.5 MG tablet Take 0.5 mg by mouth every night at bedtime as needed for sleep. 0 Active ondansetron (ZOFRAN) 4 MG tablet Take by mouth. 0 Active methylphenidate (CONCERTA) 54 MG CR tablet Take 54 mg by mouth every morning. 0 Active gabapentin (NEURONTIN) 300 MG capsuleIndications: 2 caps po daily Take 300 mg by mouth daily. 0 Active erenumab-aooe (Aimovig, 140 MG Dose,) 70 MG/ML SOAJ Inject under the skin once. 0 Active OXcarbazepine (TRILEPTAL) 150 MG tabletIndications:2 tabs po BID Take 150 mg by mouth 2 (two) times a day. 0 Active fluconazole (DIFLUCAN) 100 MG tabletIndications:2 tabs po once a week Take 100 mg by mouth daily. 0 Active buPROPion (ZYBAN) 150 MG 12 hr tablet Take 150 mg by mouth 2 (two) times a day. 0 Active baclofen (LIORESAL) 5 MG split tablet Take 10 mg by mouth 3 (three) times a day. 0 Active hydroxychloroquine (PLAQUENIL) 200 MG tablet Take 200 mg by mouth daily. 0 Active mycophenolate (CELLCEPT) 500 MG tablet Take by mouth 2 (two) times a day. 0 Active cycloSPORINE (RESTASIS) 0.05 % ophthalmic emulsion 1 drop 2 (two) times a day. 0 Active budesonide (PULMICORT) 0.25 MG/2ML nebulizer solution Take 0.25 mg by nebulization daily. 0 Active Benadryl soln 12.5mg/5 mL:Maalox:Lidocaine Viscous 2% mouth wash 1:1:1 Swish and spit every 4 (four) hours as needed. 0 Active ALBUTEROL SULFATE ER PO Take by mouth. 0 Active topiramate (TOPAMAX) 25 MG tablet Take 25 mg by mouth 2 (two) times a day. 0 Active formoterol (PERFOROMIST) 20 MCG/2ML nebulizer solution Take 20 mcg by nebulization every 12 (twelve) hours. 0 Active ipratropium-albuter ol (DUO-NEB) 0.5-2.5 mg/mL nebulizer Inhale 3 mL into the lungs. 0 Active verapamil (CALAN-SR) 120 MG CR tablet Take 120 mg by mouth every night at bedtime. 0 Active ivabradine (CORLANOR) 5 MG TABS tablet Take 5 mg by mouth 2 (two) times a day with meals. 0 Active tiotropium bromide-olodaterol (STIOLTO RESPIMAT) 2.5-2.5 MCG/ACT inhaler by Inhaled route. 0 Active butalbital-acetamin ophen-caffeine 50-325-40 MG per tablet Take 1 tablet by mouth every 4 (four) hours as needed for pain. 0 Active Active Problems Problem Noted Date Diagnosed Date Sjogren's syndrome 05/31/2021 Left upper quadrant abdominal pain 04/23/2021 Overview: Last Assessment & Plan: Unclear etiology. ? Secondary to GERD vs functional dyspepsia vs pancreatic origin. Patient was noted to have elevated pancreatic enzymes in 2019. She reportedly underwent CT and MRI at that time which was unremarkable except for a bulky appearing pancreas. She subsequently underwent EUS in 03/2019 which showed erythematous mucosa in the stomach and duodenum, normal pancreaticobiliary EUS, biopsies benign. She reports constant LUQ pain since with nausea and a 30 lb weight loss. Failed trial with Prilosec 20 mg daily. - will trial Protonix 40 mg daily - ordered labs - discussed GERD diet - will discuss imaging/further work-up with Dr. Heller Weight loss 03/10/2021 Elevated lipase 06/16/2020 Overview: Dr Kramer; unclear if autoimmune pancreatitis Chronic fatigue 09/13/2019 Lupus anticoagulant positive 02/07/2019 Intractable migraine without status migrainosus 10/14/2018 Tinnitus 02/11/2017 Gastroesophageal reflux disease 10/12/2016 Severe chronic obstructive pulmonary disease Overview: Dr Earl in [place] Attention deficit hyperactiv ity disorder (ADHD), predominantly inattentive type 05/01/2016 Overview: Psychiatry prescribing POTS (postural orthostatic tachycardia syndrome) 01/06/2016 Resolved Problems Problem Noted Date Diagnosed Date Resolved Date Asthma 05/15/2017 05/31/2021 Family History Medical History Relation Name Comments No Sig Med Hx Brother Prostate cancer Father Hypothyroidism Mother Relation Name Status Comments Brother Alive Father Alive Mother Alive Social History Tobacco Use Types Packs/Day Years Used Date Smoking Tobacco: Never Smokeless Tobacco: Never Alcohol Use Standard Drinks/Week Comments Not Currently 0 (1 standard drink = 0.6 oz pur e alcohol) Sex and Gender Information Value Date Recorded Sex Assigned at Not on file Gender Identity Not on file Sexual Orientation Not on file Last Filed Vital Signs Vital Sign Reading Time Taken Comments Blood Pressure 170/81 05/21/2021 2:58 PM EDT Pulse 95 05/21/2021 2:58 PM EDT Temperature 36.9 C (98.4 F) 05/21/2021 2:58 PM EDT Respiratory Rate - - Oxygen Saturation 100% 05/21/2021 2:58 PM EDT Inhaled Oxygen Concentration - - Weight 59.1 kg (130 lb 6.4 oz) 05/21/2021 2:58 P M EDT Height 165.1 cm (5' 5 ) 05/21/2021 2:58 PM EDT Body Mass Index 21.7 05/21/2021 2:58 PM EDT Plan of Treatment Health Maintenance Due Date Last Done Comments Hepatitis B Vaccines (1 of 3 - 3-dose series) 1977 Hepatitis C Screening 1977 Depression Screening 1989 Preventative Health Evaluation 1995 Cervical Cancer Screening (Pap Smear) 1998 Pneumococcal Vaccine (2 of 2 - PCV) 08/05/2017 08/05/2016 Colon Cancer Screening (Colonoscopy) 2022 COVID-19 Vaccine ( season) 2025 03/25/2021, 10/15/2020, 09/17/2020 Influenza Vaccine (#1) 2025 , 05/24/2020, 05/24/2020, Additional history exists DTap / Tdap / Td (3 - Td or Tdap) 05/24/2030 05/24/2020, 08/27/2009 RSV Ped < 20 months Aged Out No longe r eligible based on patient's age to complete this topic Care Teams Fashion Coordinator Relationship Specialty Start Date End Date Axel Graves MD [address] [place] [address] PCP - General Internal Medicine 05/02/21
--- OUTSIDE RECORDS SUMMARY | 2025-04-03 11:46 | XMS_ITS | Encounter Summary ---
Author Organization [facility] Address [address] [address] Phone Care Team Providers Care Mutual Funds Agent Name Role Phone Tom Ayon MD Unavailable [phone] Axel Graevs MD Primary Care Provider [phone] Encounter Details Date Type Department Care Team (Late st Contact Info) Description 06/01/2022 Procedure Pass [facility] [place] [address] [place] [address] Social History Tobacco Use Types Packs/Day Years Used Date Smoking Tobacco: Never Smokeless Tobacco: Never Alcohol Use Standard Drinks/Week Comments No 0 (1 standard drink = 0.6 oz pur e alcohol) Comments Unknown Sex and Gender Information Value Date Recorded Sex Assigned at Female 01/10/2020 6:56 PM EDT Legal Sex Female 5:12 PM EST Gender Identity Female 01/10/2020 6:56 PM EDT Sexual Orientation Straight 01/10/2020 6: 56 PM EDT documented as of this encounter Plan of Treatment Upcoming Encounters Date Type Department Care Team (Late st Contact Info) Description 06/07/2024 Procedure [place] [facility] [place] [facility] [address] [place] [address] 06/12/2026 9:30 AM EST Appointment [facility] [place] [facility] US [address] [place] [address] Yara Ingram, SOFTWARE DEVELOPMENT COORDINATOR [address] [address] 06/12/2026 10:30 AM EST Office Visit [facility] [place] Cardiovascular Medicine [address] [facility], 5th Floor, [address] [place] [address] Yara Ingram, ALEC [address] [facility] [address] [place] [address] [email or web address] documented as of this encounter Visit Diagnoses Not on filedocumented in this encounter Care Teams Mutual Funds Agent Relationship Specialty Start Date End Date Axel Graves MD [address] [place] [address] PCP - General Internal Medicine 04/15/21 Tom Ayon MD [address] [place] [address] [address] [place] [address] Mining Teacher Internal Medicine 01/07/17 documented as of this encounter Additional Source Comments The information contained in this document represents components of the legal health record. It is not the complete legal health record.[facility]
--- OUTSIDE RECORDS SUMMARY | 2025-04-03 11:46 | XMS_ITS | Encounter Summary ---
Author Organization [facility] Address [address] [facility] [address] [place] [address] Phone Care Team Providers Care Canceling Machine Operator Name Role Phone Tom Ayon MD Unavailable [phone] Axel Graves MD Primary Care Provider [phone] Encounter Details Date Type Department Care Team (Late st Contact Info) Description 05/21/2021 Procedure [place] [facility] [place] [address] [place] [address] Social History Tobacco Use Types Packs/Day Years [...] st Contact Info) Description 06/07/2024 Procedure Pass [facility] [place] [address] [place] [address] 06/12/2026 9:30 AM EST Appointment [facility] [place] [address] [place] [address] Yara Ingram, SWATCH CUTTER [address] [address] 06/12/2026 10:30 AM EST Office Visit [facility] [place] [address] [facility], 5th Floor, [address] [place] [address] Yara Ingram, ALEC [address] [facility] [address] [place] [address] [email or web address] documented as of this encounter Visit Diagnoses Not on filedocumented in this encounter Care Teams Canceling Machine Operator Relationship Specialty Start Date End Date Axel Graves MD [address] [place] [address] PCP - General Internal Medicine 04/15/21 Tom Ayon MD [address] [place] [address] [address] [place] [address] Canceling Machine Operator Internal Medicine 01/07/17 documented as of this encounter Additional Source Comments The information contained in this document represents components of the legal health record. It is not the complete legal health record.[facility]
--- OUTSIDE RECORDS SUMMARY | 2025-04-03 11:46 | XMS_ITS | Encounter Summary ---
Author Organization [facility] Address [address] [place] [address] Phone Care Team Providers Care Real Estate Clerk Name Role Phone Tom Ayon MD Unavailable [phone] Axel Graves MD Primary Care Provider [phone] Encounter Details Date Type Department Care Team (Late st Contact Info) Description 06/02/2023 Procedure Pass [facility] Cardiac US [address] [place] [address] Social History Tobacco Use Types Packs/Day Years [...] Answer Date Recorded Are you interested in help w ith more adult education (for example, completing high school, GED, job training, learning the Senegalese language, technical skills, or developing parenting skills)? No 10/28/2022 Food Answer Date Recorded Within the past [...] st Contact Info) Description 06/07/2024 Procedure Pass [facility] [address] [place] [address] 06/12/2026 9:30 AM EST Appointment [facility] [address] [place] [address] Yara Ingram CNP [address] [place] [address] 06/12/2026 10:30 AM EST Office Visit [facility] Cardiovascular Medicine [address] [place] [address], 5th Floor, [address] [place] [address] Yara Ingram CNP [address] [address] [email or web address] documented as of this encounter Visit Diagnoses Not on filedocumented in this encounter Care Teams Real Estate Clerk Relationship Specialty Start Date End Date Axel Graves MD [address] [place] [address] PCP - General Internal Medicine 04/15/21 Tom Ayon MD [address] [place] [address] Door Core Assembler Internal Medicine 01/07/17 documented as of this encounter Additional Source Comments The information contained in this document represents components of the legal health record. It is not the complete legal health record.[facility]
--- OUTSIDE RECORDS SUMMARY | 2025-04-03 11:47 | XMS_ITS | Clinical Summary ---
Author Organization [facility] Address [address] [facility] [address] [place] [address] Phone Care Team Providers Care Bill Poster Installer Name Role Phone Tom Ayon MD Unavailable [phone] Axel Graves MD Primary Care Provider [phone] Allergies Active Allergy Reactions Criticality Noted Date Comments Metoprolol Succinate Other (See Comments) 05/15/2017 Exacerbated her asthma Prednisone Hallucinations,Head aches,Mental Status Change High 05/21/2021 Pt hallucinates she states. hallucinations Medications HYDROXYZINE HCL ORAL Take 25 mg by mouth daily as needed. Active albuterol 90 mcg/actuation inhaler Inhale 2 puffs into the lungs every 6 (six) hours as needed for wheezing. Active ondansetron (ZOFRAN) 4 MG tablet Take 4 mg by mouth every 8 (eight) hours as needed for nausea. Active sodium chloride 3 % nebulizer solution Take 4 mL by nebulization as needed for other (free text field) (wheezing). Active albuterol (ACCUNEB) 0.63 mg/3 mL nebulizer solution Take 1 ampule by nebulization every 6 (six) hours as needed for wheezing. Active cetirizine (ZYRTEC) 10 MG tablet Take 10 mg by mouth daily. Active Active Problems Problem Noted Date Diagnosed Date LUQ pain 11/13/2021 Assessment & Plan (11/13/2021 9:39 AM EDT): Has had LUQ for a few years. There was concern for autoimmune pancreatitis b/c her lipase would elevate. Had EUS with FNA of pancreas listed as normal per outside GI note. IGG4 normal but still felt could be AIP. However, meds used for her SLE/sjogrens are the same for AIP (danelle if she starts rituxan) so no different management. CT in care everywhere shows normal pancreas. In 2019 had a severe intense pain in LUQ similar to her usual location but just much worse and this was ultimately dx'd as internal shingles . Lipase was normal at that time. That pain came down but has it now daily and fluctuation of intensity varies with no rhyme or reason. Has now lost 45-50 lbs b/c was eating less. Was very nauseated and couldn't eat. Zofran helped and wt now stable x3. Eating doesn't impact the pain. If she eats a lot she feels like stomach pressure is pushing on the pain . There is a plan to trial off cellcept with change to rituxan. On pantoprazole but sees no difference. IMP: LUQ pain with profound nausea in past and wt loss suggests idiopathic gastroparesis. Will get gastric emptying study as she has never had this done. If normal, would consider repeat EGD/EUS and/or starting a TCA or gabapentin. Follow up by [facility]. 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 04/18/2015 Overview (07/02/2015): Conversion disorder Family History Medical History Relation Comments Glaucoma Father Heart disease Father Hypertension Father Prostate cancer Father Hypertension Maternal Grandfather Hypertension Maternal Grandmother Hypertension Mother Hypertension Paternal Grandfather Hypertension Paternal Grandmother Relation Status Comments Father Maternal Grandfather Maternal Grandmother Mother Paternal Grandfather Paternal Grandmother Social History Tobacco Use Types Packs/Day Years Used Date Smoking Tobacco: Never Smokeless Tobacco: Never Tobacco Cessation:Counseling Given: Not Answered Alcohol Use Standard Drinks/Week Comments No 0 [...] your housing situation today? I have soumya tiff 10/28/2022 How many times have you move [...] Orientation Straight 01/10/2020 6: 56 PM EDT Last Filed Vital Signs Vital Sign Reading Time Taken Comments Blood Pressure 144/74 06/07/2024 9:26 AM EST Pulse 66 06/07/2024 9:26 AM EST Temperature 36.7 C (98.1 F) 10/28/2022 11:15 AM EDT Respiratory Rate 16 05/14/2020 12:01 PM EDT Oxygen Saturation 99% 07/01/2022 2:42 PM EST Inhaled Oxygen Concentration - - Weight 59 kg (130 lb) 06/07/2024 9:26 AM EST Height 167 cm (5' 5.75 ) 06/07/2024 8:14 AM EST Body Mass Index 21.14 06/07/2024 8:14 AM EST Plan of Treatment Upcoming Encounters Date Type Department Care Team (Late st Contact Info) Description 06/07/2024 Procedure Pass [facility] Cardiac US [address] [place] [address] 06/12/2026 9:30 AM EST Appointment [facility] Cardiac US [address] [place] [address] Yara Ingram, POOL SERVICER [address] [address] [email or web address] 06/12/2026 10:30 AM EST Office Visit [facility] Cardiovascular Medicine [address] [facility], 5th Floor, [address] [place] [address] Yara Ingram, POOL SERVICER [address] [address] [email or web address] Health Maintenance Due Date Last Done Comments DEPRESSION SCREENING 1989 HEPATITIS C SCREENING 1995 HIV ONE-TIME SCREENING (18-65 YEARS) 1995 LIPID PANEL 1995 PAP SMEAR 1998 MAMMOGRAM 2017 PNEUMOCOCCAL VACCINES (0-49 years) (2 of 2 - PCV) 08/05/2017 08/05/2016 COLOGUARD 2022 COLONOSCOPY 2022 COLORECTAL CANCER SCREENING 2022 FIT TEST 2022 FOBT 2022 SIGMOIDOSCOPY 2022 VIRTUAL COLONOSCOPY 2022 INFLUENZA VACCINE (#1) 2025 , 05/24/2020, 04/11/2019, Additional history exists COVID-19 VACCINE (2024- season) 2025 10/15/2020, 09/17/2020 Adult Td,Tdap Booster 05/24/2030 05/24/2020, 010 SMOKING STATUS SCREENING (Once After 26 Yrs) Completed 06/02/2023 HEPATITIS A VACCINES Aged Out No long er eligible based on patient's age to complete this topic HIB VACCINES Aged Out No longer eligi ble based on patient's age to complete this topic MENINGOCOCCAL VACCINES (ACWY) Aged Out No longer eligible based on patient's age to complete this topic MENINGOCOCCAL VACCINES (B) Aged Out N o longer eligible based on patient's age to complete this topic Medical Devices Not [place] [address] MEDICARE PART A & B [facility] [place] [address] MEDICARE PART A & [place] [address] MEDICARE PART A & B [id number] [place] [address] [place] [address] MEDICARE PART A & B [facility] [place] [address] MEDICARE PART A & B Member Subscriber Plan / Payer (Ef fective 2016-Present) Name:Milagros Mojica Member ID:[id number] Relation to Subscriber:Self Name:Milagros Mojica Subscriber ID:[id number] Payer ID:[id number] Group ID:Not on file Type:Medicare Address: [facility] [facility] [address] POS MEDICARE PART A & [place] [address] MEDICARE PART A & B [facility] [place] [address] MEDICARE PART A & B Member Subscriber Plan / Payer (Ef fective 2016-Present) Name:Milagros Mojica Member ID:[id number] Relation to Subscriber:Self Name:Milagros Mojica Subscriber ID:[id number] Payer ID:[id number] Group ID:Not on file Type:Medicare Address: [facility] [address] POS MEDICARE PART A & B Member Subscriber Plan / Payer (Ef fective 2016-Present) Name:Milagros Mojica Member ID:[id number] Relation to Subscriber:Self Name:Milagros Mojica Subscriber ID:[id number] Payer ID:[id number] Group ID:Not on file Type:Medicare Address: [facility] [address] [place] [id number] [facility] POS Care Teams Bill Poster Installer Relationship Specialty Start Date End Date Axel Graves MD [address] [place] [address] PCP - General Internal Medicine 04/15/21 Tom Ayon MD [address] [place] [address] Studio Data Analyst Internal Medicine 01/07/17 Additional Source Comments The information contained in this document represents components of the legal health record. It is not the complete legal health record.[facility]
--- OUTSIDE RECORDS SUMMARY | 2025-04-03 11:47 | XMS_ITS | Encounter Summary ---
Author Organization [facility] Address [address] [place] [address] Care Team Providers Care Supervisor Area Name Role Phone Axel Graves MD Primary Care Provider Encounter Details Date Type Department Care Team ([facility] Contact Info) Description 06/11/2020 Scanned Document [facility] Rheumatology [address] [address] Roxy Rucker DO [address] [place] [address] MRI Approval Social History Tobacco Use Types Packs/Day Years Used Date Smoking Tobacco: Never Smokeless Tobacco: Never Alcohol Use Standard Drinks/Week Comments Never 0 (1 standard drink = 0.6 oz pur e alcohol) AUDIT-C Answer Date Recorded Q1: How often do you have a drink containing alc ohol? Never 03/13/2020 Average Number of Drinks Not on file 020 Frequency of Binge Drinking Not on file 02/23 Comments Unknown Sex and Gender Information Value Date Recorded Sex Assigned at Female 05/14/2021 4:04 PM EDT Legal Sex Female 2:38 PM EST Gender Identity Female 05/14/2021 4:04 PM EDT Sexual Orientation Not on file COVID-19 Exposure Response Date Recorded In the last month, have you been in contact with someone who was confirmed or suspected to have Coronavirus / COVID-19? No / Unsure 06/12/2020 10:33 AM EST documented as of this encounter Plan of Treatment Upcoming Encounters Date Type Department Care Team (Late st Contact Info) Description 05/29/2025 10:30 AM EST Office Visit [facility] Rheumatology [place] [address] [facility], [facility] [address] [place] [address] Roxy Rucker DO [address] [address] : Follow up 2-3 months, wait list for sooner appt. documented as of this encounter Visit Diagnoses Not on filedocumented in this encounter Care Teams Supervisor Area Relationship Specialty Start Date End Date Axel Graves MD [address] [place] [address] PCP - General 12/11/19 03/06/25 Carolyn OATES [facility] Adult Medicine [address] [place] [address] Primary Care Provider Internal Medicine 03/05/25 documented as of this encounter
--- OUTSIDE RECORDS SUMMARY | 2025-04-03 11:47 | XMS_ITS | Encounter Summary ---
Author Organization [facility] Address [address] [place] [address] Care Team Providers Care Hot Wound Spring Production Supervisor Name Role Phone Axel Graves MD Primary Care Provider [phone] Encounter Details Date Type Department Care Team (Late st Contact Info) Description 02/28/2019 Scanned Document [facility] [address] [place] [id number] Axel Graves MD [address] [place] [address] Social History Tobacco Use Types Packs/Day Years Used Date Smoking Tobacco: Never Assessed Comments Unknown Sex and Gender Information Value Date Recorded Sex Assigned at Not on file Legal Sex Female 8:07 AM EDT Gender Identity Not on file Sexual Orientation Not on file documented as of this encounter Plan of Treatment Not on file documented as of this encounter Visit Diagnoses Not on filedocumented in this encounter Care Teams Hot Wound Spring Production Supervisor Relationship Specialty Start Date End Date Axel Graves MD [address] [place] [address] PCP - General 02/16/19 documented as of this encounter
--- OUTSIDE RECORDS SUMMARY | 2025-04-03 11:47 | XMS_ITS | Encounter Summary ---
Author Organization [facility] Address [address] [place] [address] Phone Care Team Providers Care Phy Therapist Name Role Phone Axel Graves MD Primary Care Provider [phone] Tom Ayon MD Unavailable [phone] Augusto Gallegos MD Unavailable [email or web address] Augusto Gallegos MD Unavailable [email or web address] Axel Graves MD Primary Care Provider [phone] Encounter Details Date Type Department Care Team (Late st Contact Info) Description 01/18/2017 Procedure Pass [facility] Imaging [address] [place] [address] Social History Tobacco Use Types Packs/Day Years [...] st Contact Info) Description 06/07/2024 Procedure Pass [facility] Cardiac US [address] [place] [address] 06/12/2026 9:30 AM EST Appointment [facility] Cardiac US [address] [place] [address] Yara Ingram, TRICHOLOGIST [address] [address] 06/12/2026 10:30 AM EST Office Visit [facility] Cardiovascular Medicine 32 [facility], 5th Floor, [address] [place] [address] Yara Ingram, TRICHOLOGIST [address] [address] [email or web address] documented as of this encounter Visit Diagnoses Not on filedocumented in this encounter Care Teams Phy Therapist Relationship Specialty Start Date End Date Axel Graves MD [address] [place] [address] PCP - General Internal Medicine 03/05/15 04/14/21 Axel Graves MD [address] [place] [address] PCP - General Internal Medicine 04/15/21 Tom Ayon MD [address] [address] Account Coordinator Internal Medicine 01/07/17 Augusto Gallegos MD [email or web address] Insurance Assigned Provider 01/01/18 08/13/18 Augusto Gallegos MD [email or web address] Insurance Assigned Provider 11/05/18 11/26/18 documented as of this encounter Additional Source Comments The information contained in this document represents components of the legal health record. It is not the complete legal health record.[facility]
--- OUTSIDE RECORDS SUMMARY | 2025-04-03 11:47 | XMS_ITS ---
Author Name [facility] Organization Unknown Encounters Encounter Type Encounter Reason Primary Diagnosis Location Date Ambulatory Sjogren syndrome, unspecified Sjogren syndrome, unspecified [facility] 03/07/2025 Ambulatory Sjogren syndrome, unspecified Sjogren syndrome, unspecified [facility] 10/04/2024 Ambulatory Elevation of levels of liver transaminase levels Elevation of levels of liver transaminase levels [facility] 06/06/2024 Ambulatory Vitamin deficiency, unspecified Vitamin deficiency, unspecified [facility] 01/31/2024 Ambulatory Sjogren syndrome, unspecified Sjogren syndrome, unspecified [facility] 10/19/2023 Ambulatory Sjogren syndrome, unspecified Sjogren syndrome, unspecified [facility] 06/08/2023 Ambulatory Sjogren syndrome , unspecified [facility] 01/14/2023 Ambulatory Sjogren syndrome , unspecified [facility] 10/08/2022 Ambulatory Sjogren syndrome , unspecified [facility] 07/08/2022 Ambulatory Sjogren syndrome , unspecified [facility] 04/13/2022 Ambulatory [facility] 01/09/20 Care Team Organization Name Specialty Phone Email Start Date End [facility] 04/13/2022 [facility] 01/08/202203/26 [facility] Primary Care 04/23/2021 021
--- OUTSIDE RECORDS SUMMARY | 2025-04-03 11:47 | XMS_ITS | Encounter Summary ---
Author Organization [facility] Address [address] [place] [address] Care Team Providers Care Textile Science Technician Name Role Phone Unavailable Primary Care Provider Unavailabl e Encounter Details Date Type Department Care Team ([facility] Contact Info) Description 03/19/2025 Results Follow-Up [place] [id number] Roxy Rucker, [address] [address] UA with Reflex Microscopic Social History Tobacco Use Types Packs/Day Years Used Date Smoking Tobacco: Never Passive Smoke Exposure: Never Smokeless Tobacco: Never Alcohol Use Standard Drinks/Week Comments Never 0 (1 standard drink = 0.6 oz pur e alcohol) AUDIT-C Answer Date Recorded Q1: How often do you have a drink containing alc ohol? Never 03/13/2020 Average Number of Drinks Not on file 020 Frequency of Binge Drinking Not on file 02/23 Comments No Sex and Gender Information Value Date Recorded Sex Assigned at Female 05/14/2021 4:04 PM EDT Legal Sex Female 2:38 PM EST Gender Identity Female 05/14/2021 4:04 PM EDT Sexual Orientation Not on file documented as of this encounter Plan of Treatment Upcoming Encounters Date Type Department Care Team ([facility] Contact Info) Description 05/29/2025 10:30 AM EST Office Visit [facility] Rheumatology [address] [address] Roxy Rucker, [address] [address] : Follow up 2-3 months, wait list for sooner appt. documented as of this encounter Visit Diagnoses Not on filedocumented in this encounter Care Teams Textile Science Technician Relationship Specialty Start Date End Date Carolyn OATES [facility] Adult Medicine [address] [place] [address] Primary Care Provider Internal Medicine 03/05/25 documented as of this encounter
--- OUTSIDE RECORDS SUMMARY | 2025-04-03 11:47 | XMS_ITS | Encounter Summary ---
Author Organization [facility] Address [address] [facility] [address] [place] [address] Phone Care Team Providers Care Financial Institution Branch Manager Name Role Phone Axel Graves MD Primary Care Provider [phone] Tom Ayon MD Unavailable [phone] Augusto Gallegos MD Unavailable [email or web address] Augusto Gallegos MD Unavailable [email or web address] Axel Graves MD Primary Care Provider [phone] Encounter Details Date Type Department Care Team (Late Contact Info) Description 07/12/2015 Transcribe Orders [facility] Speech Language Swallowing and Reading Disorders [address], [address] [place], [place] [id number] Shaunna Gallegos, [place] [address] [place] [address] Social History Tobacco Use Types Packs/Day Years Used Date Smoking Tobacco: Never Comments Unknown Sex and Gender Information Value Date Recorded Sex Assigned at Female 01/10/2020 6:56 PM EDT Legal Sex Female 5:12 PM EST Gender Identity Female 01/10/2020 6:56 PM EDT Sexual Orientation Straight 01/10/2020 6: 56 PM EDT documented as of this encounter Plan of Treatment Upcoming Encounters Date Type Department Care Team (Late Contact Info) Description 06/07/2024 Procedure Pass [facility] Cardiac US [address] [place] [address] 06/12/2026 9:30 AM EST Appointment [facility] Cardiac US [address] [place] [address] Yara Ingram, MONONITROTOLUENE OPERATOR [address] [facility] [address] [place] [address] [email or web address] 06/12/2026 10:30 AM EST Office Visit [facility] Cardiovascular Medicine 32 [facility], 5th Floor, [address] [place] [address] Yara Ingram, MONONITROTOLUENE OPERATOR 32 [facility] [address] [place] [address] [email or web address] documented as of this encounter Visit Diagnoses Not on filedocumented in this encounter Care Teams Financial Institution Branch Manager Relationship Specialty Start Date End Date Axel Graves MD [address] [place] [address] PCP - General Internal Medicine 03/05/15 04/14/21 Axel Graves MD [address] [place] [address] PCP - General Internal Medicine 04/15/21 Tom Ayon MD [address] [place] [address] Amusement Or Recreation Card Checker Internal Medicine 01/07/17 Augusto Gallegos MD [email or web address] Insurance Assigned Provider 01/01/18 08/13/18 Augusto Gallegos MD [email or web address] Insurance Assigned Provider 11/05/18 11/26/18 documented as of this encounter Additional Source Comments The information contained in this document represents components of the legal health record. It is not the complete legal health record.[facility]
--- OUTSIDE RECORDS SUMMARY | 2025-04-03 11:47 | XMS_ITS | Clinical Summary ---
Author Organization [facility] Address [address] [place] [address] Care Team Providers Care Dressing Machine Operator Name Role Phone Axel Graves MD Primary Care Provider [phone] Allergies Active Allergy Reactions Criticality Noted Date Comments Metoprolol Other (See Comments) Medium 05/15/2017 Exacerbated her asthma Exacerbated her asthma Medications buPROPion (WELLBUTRIN SR) 150 MG 12 hr tablet 2 (two) times a day. 9 Active PROAIR HFA 108 (90 Base) MCG/ACT inhaler INHALE 2 PUFFS 4 TIMES A DAY NEEDED FOR WHEEZING /COUGH OR SHORTNESS OF BREATH 3 9 Active ipratropium-alb uterol (DUONEB) 0.5-2.5 mg/3 mL nebulizer solution Take 1 vial by nebulization daily. Active tiotropium (SPIRIVA RESPIMAT) 2.5 MCG/ACT inhalationIndic ations:Chronic Obstructive Pulmonary Disease Inhale daily. Active loratadine (CLARITIN) 10 MG tablet Take 10 mg by mouth daily. 11 9 Active mycophenolate (CELLCEPT) 500 MG tablet 3 (three) times a day in the morning, mid-day and early evening. 9 Active MAGIC MOUTHWASH - COMPOUNDING SWISH AND SPIT 10ML BY MOUTH EVERY 4 HOURS NEEDED FOR PAIN 5 9 Active amphetamine-dex troamphetamine (ADDERALL) 30 MG tablet 9 Active budesonide (PULMICORT) 0.25 mg/2 mL nebulizer solution As needed 11 9 Active butalbital-acet aminophen-caffe ine (FioriCET, ESGIC) 50-325-40 mg tablet TAKE 1 TABLET EVERY 6 HOURS NEEDED FOR HEADCAHES 3 9 Active RESTASIS 0.05 % ophthalmic emulsion 9 Active AIMOVIG 140 MG/ML Solution Auto-injector injection For headaches 11 9 Active fluconazole (diFLUcan) 100 MG tablet TAKE 2 TABLETS BY MOUTH ONCE A WEEK 5 9 Active hydroxychloroqu ine (PLAQUENIL) 200 MG tablet 9 Active topiramate (TOPAMAX) 50 MG tablet Take 50 mg by mouth 2 (two) times a day. 3 9 Active tretinoin (RETIN-A) 0.025 % cream 9 Active verapamil (CALAN) 120 MG tablet 9 Active zolpidem (AMBIEN) 10 MG tablet Take 10 mg by mouth nightly as needed. Insomnia 0 9 Active ivabradine (CORLANOR) 5 MG tabletIndicatio ns:heart rate Take by mouth 2 (two) times a day. Active gabapentin (NEURONTIN) 300 MG capsule Take 600 mg by mouth daily. Active ondansetron (ZOFRAN) 24 MG tablet Take 24 mg by mouth once. Active OXcarbazepine (TRILEPTAL) 150 MG tablet Take 150 mg by mouth. Active PANTOprazole (PROTONIX) 40 MG EC tabletIndicatio ns:Left upper quadrant abdominal pain TAKE 1 TABLET BY MOUTH EVERY DAY IN THE MORNING BEFORE BREAKFAST 30 tablet 3 2 Active Active Problems Problem Noted Date Diagnosed Date Left upper quadrant abdominal pain 04/23/2021 Assessment & Plan (04/25/2021 8:11 AM EDT): Unclear etiology. ? Secondary to GERD vs [...] will discuss imaging/further work-up with Dr. Heller Gastroesophageal reflux disease 04/23/2021 Social History Tobacco Use Types Packs/Day Years [...] Sign Reading Time Taken Comments Blood Pressure 120/74 04/23/2021 10:27 AM EDT Pulse 76 04/23/2021 10:27 AM EDT Temperature 36.1 C (96.9 F) 04/23/2021 10:27 AM EDT Respiratory Rate 13 04/18/2019 11:15 AM EDT Oxygen Saturation 99% 04/18/2019 11:15 AM EDT Inhaled Oxygen Concentration - - Weight 60.3 kg (133 lb) 04/23/2021 10:27 AM EDT Height 167.6 cm (5' 6 ) 04/23/2021 10:27 AM EDT Body Mass Index 21.47 04/23/2021 10:27 AM EDT Plan of Treatment Health Maintenance Due Date Last Done Comments Hepatitis C Virus Screening 1977 COVID-19 Vaccine (#1) 1982 HIV Screening 1990 DTaP/Tdap/Td Vaccines (1 - Tdap) 02/04/1996 Hepatitis B Vaccines (1 of 3 - 19+ 3-dose series) 02/04/1996 Pneumococcal Vaccine: Pediat sonny (0-5 Years) and At-Risk Patients (6 to 49 Years) (1 of 2 - PCV) 02/04/1996 Pap Smear (Ages 21-65) 1998 Mammogram 2017 Colonoscopy 2022 Influenza Vaccine 02/23/2025 05/24/2020, , 05/12/2018 Insurance MEDICARE PART A & B [facility] Care Teams Dressing Machine Operator Relationship Specialty Start Date End Date Axel Graves MD [address] [place] [address] PCP - General 02/16/19
--- OUTSIDE RECORDS SUMMARY | 2025-04-03 11:47 | XMS_ITS | Encounter Summary ---
Author Organization [facility] Address [address] [place] [address] Care Team Providers Care Head Start Director Name Role Phone Axel Graves MD Primary Care Provider Encounter Details Date Type Department Care Team ([facility] Contact Info) Description 06/08/2020 Procedure Pass [facility] Radiology, Outpatient Center (MRI) [address] [facility], [address] [place] [id number] Social History Tobacco Use Types Packs/Day Years [...] Upcoming Encounters Date Type Department Care Team ([facility] Contact Info) Description 05/29/2025 10:30 AM EST Office Visit [facility] Rheumatology [address] [address] Roxy Rucker, DO [address] [address] : Follow up 2-3 months, wait list for sooner appt. documented as of this encounter Visit Diagnoses Not on filedocumented in this encounter Care Teams Head Start Director Relationship Specialty Start Date End Date Axel Graves MD [address] [place] [address] PCP - General 12/11/19 03/06/25 Carolyn OATES [facility] Adult Medicine [address] [place] [address] Primary Care Provider Internal Medicine 03/05/25 documented as of this encounter
--- OUTSIDE RECORDS SUMMARY | 2025-04-03 11:47 | XMS_ITS | Clinical Summary ---
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 hallucinations Medications hydrOXYzine HCL (ATARAX) 25 mg tablet 10/31/19 20 Active ipratropium-al buteroL (DUO-NEB) 0.5-2.5 mg/3 mL nebulizer solution Inhale 3 mL every 6 (six) hours. Active albuterol 2.5 mg /3 mL (0.083 %) nebulizer solution INHALE 3 ML VIA NEBULIZER EVERY 6 HRS NEEDED 02/19/20 20 Active melatonin 10 mg tablet,ext release multiphase TK 1 T PO HS FOR RESTFUL SLEEP 06/14/20 20 Active ondansetron (ZOFRAN) 4 mg tablet Take 1 tablet (4 mg total) by mouth every 8 (eight) hours if needed. 02/18/20 21 Active sodium chloride 3 % nebulizer solution Inhale 4 mL 1 (one) time each day if needed for cough. Active cycloSPORINE (Restasis) 0.05 % ophthalmic emulsion instill 1 drop into each eye twice a day 08/23/19 25 Active lidocaine (Lidoderm) 5 % patch 1 PATCH TOPICALLY DAILY FOR 30 DAYS LEAVE ON MOST PAINFUL AREA FOR UP TO 12 HRS ON, 12 HOURS OFF 07/17/20 24 Active valACYclovir (Valtrex) 500 mg tabletIndicati ons:Post herpetic neuralgia Take 1 tablet (500 mg total) by mouth in the morning and 1 tablet (500 mg total) before bedtime. 180 tablet 1 03/07/20 25 026 Active valACYclovir (VALTREX) 1 gram tablet Take 1 tablet (1,000 mg total) by mouth in the morning and 1 tablet (1,000 mg total) before bedtime. 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 ID Ascending aorta dilation 05/15/2017 Aortic root enlargement (CMS/HCC) 02/11/2017 Overview (07/11/2021): Mild; following at [facility] GERD (gastroesophageal reflux disease) 7 Severe chronic obstructive pulmonary disease Attention deficit hyperactiv ity disorder (ADHD), predominantly inattentive type 05/01/2016 Proteinuria 10/28/2013 Overview (12/12/2019): Mild, on 24-hour urine collection; plan for followup spot urine approximately April 2014, then perhaps yearly thereafter Melanocytic nevus 08/19/2010 Overview (12/12/2019): 08/05 - [facility] (Dr. 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 04/18/2015 04/13/2022 Overview (12/12/2019): Conversion disorder Encounters Date Type Department Care Team Description 03/19/2025 Results Follow-Up [facility] [address] [address] Roxy Rucker DO UA with Reflex Microscopic 03/07/2025 11:45 AM EDT Office Visit [facility] [address] [address] Roxy Rucker DO Sjogren's syndrome, with unspecified organ involvement (HCC) (Primary Dx); Post herpetic neuralgia; Abnormal pancreatic function test; Urinary urgency; Other fatigue; Herpes zoster with complication; Medication care plan discussed with patient; Health education/counselin g from Last 3 Months Immunizations Immunization Administration Dates Next Due INFLUENZA, INJECTABLE, MDCK, QUADRIVALENT, PRESERVATIVE FREE 04/21/2021 INFLUENZA, SEASONAL, INJECTABLE 05/24/2020,06/10,04/09/2015 Influenza (IM) Preservative Free 04/11/2019,04/25 Influenza, injectable, quadr ivalent, preservative free 05/24/2020,04/11/2019,05/12/2018 PNEUMOCOCCAL POLYSACCHARIDE PPV23 08/05/2016 Pfizer Purple Cap SARS-COV-2 Vaccination 03/25/2021,03/25/2021,10/15/2020,09/17 TD (ADULT), 2LF TETANUS TOXO ID, PRESERVATIVE FREE, ADSORBED 05/24/2020 Tdap 08/27/2009 Social History Tobacco Use Types Packs/Day Years Used Date Smoking Tobacco: Never Passive Smoke Exposure: Never Smokeless Tobacco: Never Tobacco Cessation:Counseling Given: Not Answered Alcohol Use Standard Drinks/Week Comments Never 0 [...] PM EDT Sexual Orientation Not on file Last Filed Vital Signs Vital Sign Reading Time Taken Comments Blood Pressure 130/76 03/07/2025 11:39 AM EDT Pulse 72 03/07/2025 11:39 AM EDT Temperature 36.7 C (98.1 F) 03/07/2025 11:39 AM EDT Respiratory Rate 15 03/07/2025 11:39 AM EDT Oxygen Saturation 97% 03/07/2025 11:39 AM EDT Inhaled Oxygen Concentration - - Weight 61.7 kg (136 lb) 03/07/2025 11:39 AM EDT Height 167.6 cm (5' 6 ) 01/31/2024 9:18 AM EDT Body Mass Index 21.95 01/31/2024 9:18 AM EDT Plan of Treatment Upcoming Encounters Date Type Department Care Team (Late st Contact Info) Description 05/29/2025 10:30 AM EST Office Visit [facility] [address] [address] Roxy Rucker DO [address] [place] [id number] : Follow up 2-3 months, wait list for sooner appt. Scheduled Orders Name Type Priority Associated Diagnoses Orde r Schedule C3 complement Lab Routine Sjogren's syndrome, with unspecified organ involvement (HCC) Abnormal pancreatic function test Urinary urgency Other fatigue Herpes zoster with complication Post herpetic neuralgia 1 Occurrences starting 03/07/2025 until 03/07/2026 C4 complement Lab Routine Sjogren's syndrome, with unspecified organ involvement (HCC) Abnormal pancreatic function test Urinary urgency Other fatigue Herpes zoster with complication Post herpetic neuralgia 1 Occurrences starting 03/07/2025 until 03/07/2026 Protein Electro, w/ TProt, and Rfx MERCEDES, Serum Lab Routine Sjogren's syndrome, with unspecified organ involvement (HCC) Abnormal pancreatic function test Urinary urgency Other fatigue Herpes zoster with complication 1 Occurrences starting 03/07/2025 until 03/07/2026 US ABDOMEN COMPLETE Imaging Routine Sjogren's syndrome, with unspecified organ involvement (HCC) Elevated liver transaminase level Right upper quadrant pain Expected: 10/04/2024, Expires: 10/04/2025 Protein Electro, w/ TProt, and Rfx MERCEDES, Serum Lab Routine Sjogren's syndrome, with unspecified organ involvement (HCC) Elevated liver transaminase level Right upper quadrant pain Raynaud's disease without gangrene Other fatigue 1 Occurrences starting 10/04/2024 until 10/04/2025 CBC and differential Lab Routine Sjogren's syndrome, with unspecified organ involvement (HCC) Raynaud's disease without gangrene 1 Occurrences starting 09/20/2024 until 09/20/2025 URINE PROTEIN, TOTAL, RANDOM (W/O CREATININE) Lab Routine Sjogren's syndrome, with unspecified organ involvement (HCC) Raynaud's disease without gangrene 1 Occurrences starting 01/31/2024 until 01/30/2025 URINE PROTEIN, TOTAL, RANDOM (W/O CREATININE) Lab Routine Sjogren's syndrome, with unspecified organ involvement (HCC) Raynaud's disease without gangrene Mouth sores 1 Occurrences starting 10/19/2023 until 10/18/2024 URINE PROTEIN, TOTAL, RANDOM (W/O CREATININE) Lab Routine Sjogren's syndrome, with unspecified organ involvement (HCC) Raynaud's disease without gangrene 1 Occurrences starting 06/08/2023 until 06/08/2024 Protein Electro, w/ TProt, and Rfx MERCEDES, Serum Lab Routine Sjogren's syndrome, with unspecified organ involvement (HCC) Raynaud's disease without gangrene 1 Occurrences starting 01/14/2023 until 01/15/2024 Protein Electro, w/ TProt, and Rfx MERCEDES, Serum Lab Routine Sjogren's syndrome, with unspecified organ involvement (HCC) Raynaud's disease without gangrene Neuropathy 1 Occurrences starting 10/08/2022 until 10/09/2023 UA with Reflex Microscopic Lab Routine Sjogren's syndrome, with unspecified organ involvement (HCC) Raynaud's disease without gangrene Neuropathy 1 Occurrences starting 10/08/2022 until 10/09/2023 Protein/Creat Ratio, Random Urine Lab Routine Sjogren's syndrome, with unspecified organ involvement (HCC) Raynaud's disease without gangrene Neuropathy 1 Occurrences starting 10/08/2022 until 10/09/2023 CBC auto differential Lab Routine Sjogren's syndrome, with unspecified organ involvement (HCC) Raynaud's disease without gangrene On mycophenolate mofetil therapy Long-term use of Plaquenil 1 Occurrences starting 10/07/2021 until 10/07/2022 Comprehensive metabolic panel Lab Routine Sjogren's syndrome, with unspecified organ involvement (HCC) Raynaud's disease without gangrene On mycophenolate mofetil therapy Long-term use of Plaquenil 1 Occurrences starting 10/07/2021 until 10/07/2022 Sedimentation rate Lab Routine Sjogren's syndrome, with unspecified organ involvement (HCC) Raynaud's disease without gangrene On mycophenolate mofetil therapy Long-term use of Plaquenil 1 Occurrences starting 10/07/2021 until 10/07/2022 C-reactive protein Lab Routine Sjogren's syndrome, with unspecified organ involvement (HCC) Raynaud's disease without gangrene On mycophenolate mofetil therapy Long-term use of Plaquenil 1 Occurrences starting 10/07/2021 until 10/07/2022 Complement Components C3c and C4c Lab Routine Sjogren's syndrome, with unspecified organ involvement (HCC) Raynaud's disease without gangrene On mycophenolate mofetil therapy Long-term use of Plaquenil 1 Occurrences starting 10/07/2021 until 10/07/2022 Protein Electro, w/ TProt, and Rfx MERCEDES, Serum Lab Routine Sjogren's syndrome, with unspecified organ involvement (HCC) Raynaud's disease without gangrene On mycophenolate mofetil therapy Long-term use of Plaquenil 1 Occurrences starting 07/11/2021 until 07/11/2022 Lymphocyte Subset Panel 1 Lab Routine Sjogren's syndrome, with unspecified organ involvement (HCC) Raynaud's disease without gangrene On mycophenolate mofetil therapy Long-term use of Plaquenil Encounter for screening for other viral diseases 1 Occurrences starting 07/11/2021 until 07/11/2022 Immunoglobulins Panel, Serum Lab Routine Weight loss Sjogren's syndrome, with unspecified organ involvement (HCC) Raynaud's disease without gangrene On mycophenolate mofetil therapy 1 Occurrences starting 05/15/2021 until 05/15/2022 Immunofixation electrophoresis Lab Routine Weight loss Sjogren's syndrome, with unspecified organ involvement (HCC) Raynaud's disease without gangrene On mycophenolate mofetil therapy Expected: 05/15/2021 (Approximate), Expires: 05/15/2022 Protein Electro, w/ TProt, and Rfx MERCEDES, Serum Lab Routine Weight loss Sjogren's syndrome, with unspecified organ involvement (HCC) Raynaud's disease without gangrene On mycophenolate mofetil therapy 1 Occurrences starting 05/15/2021 until 05/15/2022 Lipase Lab Routine Weight loss Sjogren's syndrome, with unspecified organ involvement (HCC) Raynaud's disease without gangrene On mycophenolate mofetil therapy 1 Occurrences starting 05/15/2021 until 05/15/2022 Amylase Lab Routine Weight loss Sjogren's syndrome, with unspecified organ involvement (HCC) Raynaud's disease without gangrene On mycophenolate mofetil therapy 1 Occurrences starting 05/15/2021 until 05/15/2022 CBC auto differential Lab Routine Weight loss Sjogren's syndrome, with unspecified organ involvement (HCC) Raynaud's disease without gangrene On mycophenolate mofetil therapy 1 Occurrences starting 05/15/2021 until 05/15/2022 Comprehensive metabolic panel Lab Routine Weight loss Sjogren's syndrome, with unspecified organ involvement (HCC) Raynaud's disease without gangrene On mycophenolate mofetil therapy 1 Occurrences starting 05/15/2021 until 05/15/2022 Sedimentation rate Lab Routine Weight loss Sjogren's syndrome, with unspecified organ involvement (HCC) Raynaud's disease without gangrene On mycophenolate mofetil therapy 1 Occurrences starting 05/15/2021 until 05/15/2022 C-reactive protein Lab Routine Weight loss Sjogren's syndrome, with unspecified organ involvement (HCC) Raynaud's disease without gangrene On mycophenolate mofetil therapy 1 Occurrences starting 05/15/2021 until 05/15/2022 RAMBO IFA Screen w/Rfx to Titer and Pattern, Lab Routine Weight loss Sjogren's syndrome, with unspecified organ involvement (HCC) Raynaud's disease without gangrene On mycophenolate mofetil therapy 1 Occurrences starting 05/15/2021 until 05/15/2022 Sjogren's Antibodies (SS-A,SS-B) Lab Routine Weight loss Sjogren's syndrome, with unspecified organ involvement (HCC) Raynaud's disease without gangrene On mycophenolate mofetil therapy 1 Occurrences starting 05/15/2021 until 05/15/2022 Anti DNA Double Stranded Lab Routine Weight loss Sjogren's syndrome, with unspecified organ involvement (HCC) Raynaud's disease without gangrene On mycophenolate mofetil therapy 1 Occurrences starting 05/15/2021 until 05/15/2022 Sm And Sm/SMALL KICK PRESS OPERATOR Antibodies Lab Routine Weight loss Sjogren's syndrome, with unspecified organ involvement (HCC) Raynaud's disease without gangrene On mycophenolate mofetil therapy 1 Occurrences starting 05/15/2021 until 05/15/2022 RAMBO IFA Screen w/Rfx to Titer and Pattern, Lab Routine Sjogren's syndrome, with unspecified organ involvement (CMS/HCC) Raynaud's disease without gangrene Malaise Long-term use of Plaquenil On mycophenolate mofetil therapy Dyspnea on exertion Weight loss 1 Occurrences starting 03/10/2021 until 03/10/2022 C3 complement Lab Routine Sjogren's syndrome, with unspecified organ involvement (CMS/HCC) Raynaud's disease without gangrene Malaise Long-term use of Plaquenil On mycophenolate mofetil therapy Dyspnea on exertion Weight loss 1 Occurrences starting 03/10/2021 until 03/10/2022 C4 complement Lab Routine Sjogren's syndrome, with unspecified organ involvement (CMS/HCC) Raynaud's disease without gangrene Malaise Long-term use of Plaquenil On mycophenolate mofetil therapy Dyspnea on exertion Weight loss 1 Occurrences starting 03/10/2021 until 03/10/2022 TSH Antibody Lab Routine Sjogren's syndrome, with unspecified organ involvement (CMS/HCC) Raynaud's disease without gangrene Malaise Long-term use of Plaquenil On mycophenolate mofetil therapy Dyspnea on exertion Weight loss 1 Occurrences starting 03/10/2021 until 03/10/2022 T4, free Lab Routine Sjogren's syndrome, with unspecified organ involvement (CMS/HCC) Raynaud's disease without gangrene Malaise Long-term use of Plaquenil On mycophenolate mofetil therapy Dyspnea on exertion Weight loss 1 Occurrences starting 03/10/2021 until 03/10/2022 T3, free Lab Routine Sjogren's syndrome, with unspecified organ involvement (CMS/HCC) Raynaud's disease without gangrene Malaise Long-term use of Plaquenil On mycophenolate mofetil therapy Dyspnea on exertion Weight loss 1 Occurrences starting 03/10/2021 until 03/10/2022 C-reactive protein Lab Routine Sjogren's syndrome, with unspecified organ involvement (CMS/HCC) Raynaud's disease without gangrene Malaise Long-term use of Plaquenil On mycophenolate mofetil therapy Dyspnea on exertion Weight loss 1 Occurrences starting 03/10/2021 until 03/10/2022 Sedimentation rate Lab Routine Sjogren's syndrome, with unspecified organ involvement (CMS/HCC) Raynaud's disease without gangrene Malaise Long-term use of Plaquenil On mycophenolate mofetil therapy Dyspnea on exertion Weight loss 1 Occurrences starting 03/10/2021 until 03/10/2022 UA with Reflex Microscopic Lab Routine Sjogren's syndrome, with unspecified organ involvement (CMS/HCC) Raynaud's disease without gangrene Malaise Long-term use of Plaquenil On mycophenolate mofetil therapy Dyspnea on exertion Weight loss 1 Occurrences starting 03/10/2021 until 03/10/2022 Creatinine, urine, random Lab Routine Sjogren's syndrome, with unspecified organ involvement (CMS/HCC) Raynaud's disease without gangrene Malaise Long-term use of Plaquenil On mycophenolate mofetil therapy Dyspnea on exertion Weight loss 1 Occurrences starting 03/10/2021 until 03/10/2022 Immunoglobulins Panel, Serum Lab Routine Sjogren's syndrome, with unspecified organ involvement (CMS/HCC) Raynaud's disease without gangrene Malaise Long-term use of Plaquenil On mycophenolate mofetil therapy Dyspnea on exertion Weight loss 1 Occurrences starting 03/10/2021 until 03/10/2022 Immunofixation electrophoresis Lab Routine Sjogren's syndrome, with unspecified organ involvement (CMS/HCC) Raynaud's disease without gangrene Malaise Long-term use of Plaquenil On mycophenolate mofetil therapy Dyspnea on exertion Weight loss Expected: 03/10/2021 (Approximate), Expires: 03/10/2022 Protein Electro, w/ TProt, and Rfx MERCEDES, Serum Lab Routine Sjogren's syndrome, with unspecified organ involvement (CMS/HCC) Raynaud's disease without gangrene Malaise Long-term use of Plaquenil On mycophenolate mofetil therapy Dyspnea on exertion Weight loss 1 Occurrences starting 03/10/2021 until 03/10/2022 Thyroid Peroxidase and Thyroglobulin Antibodies Lab Routine Sjogren's syndrome, with unspecified organ involvement (CMS/HCC) Raynaud's disease without gangrene Malaise Long-term use of Plaquenil On mycophenolate mofetil therapy Dyspnea on exertion Weight loss 1 Occurrences starting 03/10/2021 until 03/10/2022 Health Maintenance Due Date Last Done Comments CT Colonography 1977 Colonoscopy 1977 Colorectal Cancer Screening 1977 FIT-DNA 1977 FIT 1977 FOBT 1977 Sigmoidoscopy 1977 Pap Smear 1998 Cervical Cancer Screening 2007 HPV/Cotest 2007 Medicare Annual Wellness Visit 08/29/2013 08/29/2012, 08/27/2009 Pneumococcal Vaccine: Peds (0 to 5 Yrs) and At-Risk Pts (6 to 49 Yrs) (2 of 2 - PCV) 08/05/2017 08/05/2016 Mammogram 04/16/2021 04/16/2020 COVID-19 Vaccine ( season) 2025 03/25/2021, 03/25/2021, 10/15/2020, Additional history exists Influenza Vaccine (#1) 2025 , 05/24/2020, 05/24/2020, Additional history exists Tdap and Td Vaccines Adult 05/24/2030 05/24/2020, Pneumococcal Vaccine: 50+ Years Discontinued 08/05/2016 Hepatitis C Screening Completed 08/25/2021 HIB Vaccines Aged Out No longer eligi ble based on patient's age to complete this topic HPV Vaccines (No Doses Required) Completed Hepatitis A Vaccines Aged Out No long er eligible based on patient's age to complete this topic IPV Vaccines Aged Out No longer eligi ble based on patient's age to complete this topic Lipid Panel Discontinued Meningococcal Vaccine Aged Out No manohar roya eligible based on patient's age to complete this topic RSV <20 Months Aged Out No longer madie gible based on patient's age to complete this topic Medical Devices Implanted Type Area Records Coordinator Device Identifier Shelf Expiration Date Model / Serial / Lot Implantable Loop Recorder Implantable Loop Recorder Chest Wall Procedures Procedure Name Priority Date/Time Associated Diagnosis Comments COPY(IES) SENT TO: Routine 03/19/2025 10 :31 AM EDT PROTEIN ELECTRO, W/TPROT, SERUM Routine 03/19/2025 10:31 AM EDT HERPES SIMPLEX VIRUS 1 & 2 (IGG), W/ REFLEX HSV-2 INHIBITION Routine 03/19/2025 10:31 AM EDT Post herpetic neuralgia LIPASE Routine 03/19/2025 10:31 AM EDT Sjogren's syndrome, with unspecified organ involvement (HCC) Abnormal pancreatic function test Urinary urgency Other fatigue Herpes zoster with complication AMYLASE Routine 03/19/2025 10:31 AM EDT Sjogren's syndrome, with unspecified organ involvement (HCC) Abnormal pancreatic function test Urinary urgency Other fatigue Herpes zoster with complication IGA Routine 03/19/2025 10:31 AM EDT Sjogren's syndrome, with unspecified organ involvement (HCC) Abnormal pancreatic function test Urinary urgency Other fatigue Herpes zoster with complication IMMUNOFIXATION ELECTROPHORESIS Routine 03/19/2025 10:31 AM EDT Sjogren's syndrome, with unspecified organ involvement (HCC) Abnormal pancreatic function test Urinary urgency Other fatigue Herpes zoster with complication IGM Routine 03/19/2025 10:31 AM EDT Sjogren's syndrome, with unspecified organ involvement (HCC) Abnormal pancreatic function test Urinary urgency Other fatigue Herpes zoster with complication IGG Routine 03/19/2025 10:31 AM EDT Sjogren's syndrome, with unspecified organ involvement (HCC) Abnormal pancreatic function test Urinary urgency Other fatigue Herpes zoster with complication PROTEIN/CREAT RATIO, RANDOM URINE Routine 03/19/2025 10:31 AM EDT Sjogren's syndrome, with unspecified organ involvement (HCC) Abnormal pancreatic function test Urinary urgency Other fatigue Herpes zoster with complication UA WITH REFLEX MICROSCOPIC Routine 03/19/2025 10:31 AM EDT Sjogren's syndrome, with unspecified organ involvement (HCC) Abnormal pancreatic function test Urinary urgency Other fatigue Herpes zoster with complication C-REACTIVE PROTEIN Routine 03/19/2025 10 :31 AM EDT Sjogren's syndrome, with unspecified organ involvement (HCC) Abnormal pancreatic function test Urinary urgency Other fatigue Herpes zoster with complication SEDIMENTATION RATE Routine 03/19/2025 10 :31 AM EDT Sjogren's syndrome, with unspecified organ involvement (HCC) Abnormal pancreatic function test Urinary urgency Other fatigue Herpes zoster with complication CMP. Routine 03/19/2025 10:31 AM EDT Sjogren's syndrome, with unspecified organ involvement (HCC) Abnormal pancreatic function test Urinary urgency Other fatigue Herpes zoster with complication CBC AND DIFFERENTIAL Routine 03/19/2025 10:31 AM EDT Sjogren's syndrome, with unspecified organ involvement (HCC) Abnormal pancreatic function test Urinary urgency Other fatigue Herpes zoster with complication ANALYZER RAMBO, IFA W/REFL TITER/PATTERN, AUTOIMMUNE PANEL 1 Routine 03/19/2025 10:31 AM EDT Sjogren's syndrome, with unspecified organ involvement (HCC) Abnormal pancreatic function test Urinary urgency Other fatigue Herpes zoster with complication URINE CULTURE Routine 03/19/2025 10:31 AM EDT Sjogren's syndrome, with unspecified organ involvement (HCC) Abnormal pancreatic function test Urinary urgency Other fatigue Herpes zoster with complication HEPATITIS C AB W/RFL TO HCB RNA, PCR W/REFLEX TO GEOTYPE, LIPA Routine 08/25/2021 12:00 AM EST Sjogren's syndrome, with unspecified organ involvement (HCC) Raynaud's disease without gangrene On mycophenolate mofetil therapy Long-term use of Plaquenil Encounter for screening for other viral diseases from Last 3 Months or Most Recently Relevant to Health Maintenance Results * (ABNORMAL) ANAlyzeR RAMBO, IFA w/Refl Titer/Pattern, Systemic Autoimmune Panel 1 (03/19/2025 10:31 AMEDT) RAMBO Screen, IFA NEGATIVE NEGATIVE [facility] 66 Comment: RAMBO IFA is a first line screen for detecting the presence of up to approximately 150 autoantibodies in various autoimmune diseases. A negative RAMBO IFA result suggests an RAMBO-associated autoimmune disease is not present at this time, but is not definitive. If there is high clinical suspicion for Sjogren's syndrome, testing for anti-SS-A/Ro antibody should be considered. Anti-Sri-1 antibody should be considered for clinically suspected inflammatory myopathies. AC-0: Negative International Consensus on RAMBO Patterns https://doi.org/10.1515/npdz-9709-3739 For additional information, please refer to http://education.Kiind.me/faq/JRI398 (This link is being provided for informational/educational purposes only.) DNA Antibody (DS) Crithidia, IFA NEGATIVE NEGATIVE [facility] 66 CHROMATIN (NUCLEOSOMAL) ANTIBODY <1.0 NEG <1.0 NEGATIVE AI [facility] 66 SM Antibody <1.0 NEG <1.0 NEGATIVE AI [facility] 66 SM/SMALL KICK PRESS OPERATOR Antibody <1.0 NEG <1.0 NEGATIVE AI [facility] 66 SMALL KICK PRESS OPERATOR ANTIBODY <1.0 NEG <1.0 NEGATIVE AI [facility] 66 Sjogren's Antibody (SS-A) <1.0 NEG <1.0 NEGATIVE AI [facility] 66 Sjogren's Antibody (SS-B) 4.2 POS(A) <1.0 NEGATIVE AI [facility] 66 SCL-70 Antibody <1.0 NEG <1.0 NEGATIVE AI [facility] 66 Sri-1 Antibody <1.0 NEG <1.0 NEGATIVE AI [facility] 66 Centromere B Antibody <1.0 NEG <1.0 NEGATIVE AI [facility] Complement Component C3C 95 83 - 193 mg/dL [facility] Complement Component C4C 13(L) 15 - 57 mg/dL [facility] 66 Cardiolipin Antibody (IgA) >65.0(H) APL-U/mL [facility] 66 Comment: Value Interpretation ----- <20.0 Antibody not detected > or = 20.0 Antibody detected Cardiolipin Antibody (IgG) >112.0(H) GPL-U/mL [facility] 66 Comment: Value Interpretation ----- <20.0 Antibody not detected > or = 20.0 Antibody detected Cardiolipin Antibody (IgM) 32.9(H) MPL-U/mL [facility] 66 Comment: Value Interpretation ----- <20.0 Antibody not detected > or = 20.0 Antibody detected Beta-2 Glyco 1 IgA >65.0(H) U/mL [facility] 66 Comment: Value Interpretation ----- <20.0 Antibody not detected > or = 20.0 Antibody detected Beta-2 Glyco 1 IgG >112.0(H) U/mL [facility] Comment: Value Interpretation ----- <20.0 Antibody not detected > or = 20.0 Antibody detected Beta 2 Glyco 1 IgM 39.4(H) U/mL [facility] Comment: The antiphospholipid antibody syndrome (APS) is a clinical-pathologic correlation that includes a clinical event (e.g. arterial or venous thrombosis, morbidity) and persistent positive antiphospholipid antibodies (IgM, IgG Cardiolipin or b2GPI antibodies greater than the 99th percentile; or a lupus anticoagulant). International consensus guidelines for APS suggest waiting at least 12 weeks before retesting to confirm antibody persistence. The [facility] [employer] [facility] immunological classification criteria for systemic lupus erythematosus (SLE) include testing for isotype IgA, which has yet to be incorporated into APS criteria. Low level antiphospholipid antibodies may sometimes be detected in the setting of infection, drug therapy or aging. For additional information, please refer to http://education.[place].[employer]/faq/LYZ485 (This link is being provided for informational/educational purposes only.) Value Interpretation ----- <20.0 Antibody not detected > or = 20.0 Antibody detected Rheumatoid Factor (IgA) <5 U [facility] Comment: Reference Range: <=6 NEGATIVE >6 POSITIVE Rheumatoid Factor (IgG) <5 U [facility] Comment: Reference Range: <=6 NEGATIVE >6 POSITIVE Rheumatoid Factor (IgM) 13(H) U [facility] Comment: Reference Range: <=6 NEGATIVE >6 POSITIVE Cyclic Citrullinated Pepetide (CCP) Ab (IgG) <16 Units [facility] Comment: Reference Range: NEGATIVE: <20 WEAK POSITIVE: 20-39 MODERATE POSITIVE: 40-59 STRONG POSITIVE >59 Mutated Citrullinated Vimentin (MCV) Ab <20 <20 U/mL [facility] Comment: Anti-mutated citrullinated vimentin antibody may be used as a second-line marker of rheumatoid arthritis, in addition to rheumatoid factor and anti-cyclic citrullinated peptide (CCP). Thyroid Peroxidase Antibodies <1 <9 IU/mL [facility] 66 Blood Venous blood / Unknown 03/19/2025 10:31 AM EDT 03/19/2025 10:33 AM EDT Narrative [facility] - 03/25/2025 3:12 AM EDT FASTING:YES FASTING: YES Resulting Agency Comment Performing Organization Information: Site ID: [id number] Name: [facility], Address: [address] [place] [phone] Director: Veronika Hernandez MD,PhD,SENA us Roxy Rucker DO LAB BLOOD ORDERABLES Fi nal Result VERA 700 [facility], [address] [place] [address], [place] [address], [facility] * (ABNORMAL) Herpes Simplex Virus 1 & 2 (IgG), w/ Reflex HSV-2 Inhibition (03/19/2025 10:31 AM EDT) HSV 1 IgG, Type Specific Ab 30.90(H) INDEX [facility] Comment: HSV 2 IgG, Type Specific Ab <0.90 INDEX [facility] Comment: INDEX INTERPRETATION <0.90 Negative 0.90 - 1.09 Equivocal >1.09 Positive This assay utilizes recombinant type-specific antigens to differentiate HSV-1 from HSV-2 infections. A positive result cannot distinguish between recent and past infection. If recent HSV infection is suspected but the results are negative or equivocal, the assay should be repeated in 4-6 weeks. The performance characteristics of the assay have not been established for pediatric populations, immunocompromised patients, or screening. For additional information, please refer to http://education.[employer]/faq/GHX363 (This link is being provided for informational/ educational purposes only). Blood Venous blood / Unknown 03/19/2025 10:31 AM EDT 03/19/2025 10:33 AM EDT Narrative [facility] - 03/25/2025 3:12 AM EDT FASTING:YES FASTING: YES Resulting Agency Comment Performing Organization Information: Site ID: [id number] Name: [facility], Address: [address] [place] [phone] Director: Veronika Hernandez MD,PhD,SENA us Roxy Rucker DO LAB BLOOD ORDERABLES Fi nal Result Performing Organization Address City/[facility]/ZIP Co de Phone Number [facility] [address], [place] [address], [place] [facility] * (ABNORMAL) Protein/Creat Ratio, Random Urine (03/19/2025 10:31 AM EDT) Creatinine, Random Urine 38 20 - 275 mg/dL [facility] 67 Protein Creatinine Ratio NOTE 24 - 184 mg/g creat [facility] 67 Comment: THE PROTEIN VALUE IS LESS THAN 4 MG/DL THEREFORE WE ARE UNABLE TO CALCULATE EXCRETION AND/OR CREATININE RATIO. Protein Creatinine Ratio NOTE 0.024 - 0.184 mg/mg creat [facility] 67 Protein, Total, Random Urine <4(L) 5 - 24 mg/dL [facility] 67 Urine (Urine, Unspecified) 03/19/2025 10:31 AM EDT 03/19/2025 10:33 AM EDT Narrative [facility] - 03/25/2025 3:12 AM EDT FASTING:YES FASTING: YES Resulting Agency Comment Performing Organization Information: Site ID: [id number] Name: [facility] Address: [address] [place] [phone] Director: Hao Ordonez M.D. us Roxy Rucker DO LAB URINE ORDERABLES Fi nal Result Performing Organization Address [facility] Co de Phone Number [facility] [address], [place] [address], [place] [facility] 67 * Copy(ies) sent to: (03/19/2025 10:31 AM EDT) Copy(ies) Sent to SEE COMMENT [facility] Comment: FRANCO;BLANCA SANCHEZ [address] [place] [address] 03/19/2025 10:3 1 AM EDT 03/19/2025 10:33 AM EDT Narrative [facility] - 03/25/2025 3:12 AM EDT FASTING:YES FASTING: YES Roxy Rucker DO LAB BLOOD ORDERABLES Fi nal Result Performing Organization Address [facility] Co de Phone Number [facility] [address], [place] [address], [place] * UA with Reflex Microscopic (03/19/2025 10:31 AM EDT) Color YELLOW YELLOW [facility] 67 Appearance CLEAR CLEAR [facility] 67 Specific [place] 1.010 1.001 - 1.035 [facility] 67 pH 7.0 5.0 - 8.0 [facility] 67 Glucose NEGATIVE NEGATIVE [facility] 67 Bilirubin, Total NEGATIVE NEGATIVE [facility] 67 Ketones NEGATIVE NEGATIVE [facility] 67 OCCULT BLOOD RESULT NEGATIVE NEGATIVE [facility] 67 Protein, Total NEGATIVE NEGATIVE [facility] 67 Nitrite NEGATIVE NEGATIVE [facility] 67 Leukocyte Esterase NEGATIVE NEGATIVE [facility] 67 Urine Urine specimen collection, clean catch / Unknown 03/19/2025 10:31 AM EDT 03/19/2025 10:33 AM EDT Narrative [facility] - 03/25/2025 3:12 AM EDT FASTING:YES FASTING: YES Resulting Agency Comment Performing Organization Information: Site ID: [id number] Name: [facility] Address: [address] [place] [phone] Director: Hao Ordonez M.D. Roxy Rucker DO LAB URINE ORDERABLES Fi nal Result Performing Organization Address City/[facility]/ZIP Co de Phone Number [facility] [address], [place] [address], [facility] 67 * Sedimentation rate (03/19/2025 10:31 AM EDT) Sedrate 6 < OR = 20 mm/h [facility] 67 Blood Venous blood / Unknown 03/19/2025 10:31 AM EDT 03/19/2025 10:33 AM EDT Narrative [facility] - 03/25/2025 3:12 AM EDT FASTING:YES FASTING: YES Resulting Agency Comment Performing Organization Information: Site ID: [id number] Name: [facility] Address: [address] [place] [address] Director: Hao Ordonez M.D. us Roxy Rucker DO LAB BLOOD ORDERABLES Fi nal Result [facility] [address], [place] [address], [facility] 67 * CBC and differential (03/19/2025 10:31 AM EDT) Pathologist [facility] WBC 4.8 3.8 - 10.8 Thousand/u L [facility] 67 Red Blood Cell Count 4.19 3.80 - 5.10 Million/uL [facility] 67 Hemoglobin 12.6 11.7 - 15.5 g/dL [facility] 67 Hematocrit 39.1 35.0 - 45.0 % [facility] 67 MCV 93.3 80.0 - 100.0 fL [facility] 67 MCH 30.1 27.0 - 33.0 pg [facility] 67 MCHC 32.2 32.0 - 36.0 g/dL [facility] 67 Comment: For adults, a slight decrease in the calculated MCHC value (in the range of 30 to 32 g/dL) is most likely not clinically significant; however, it should be interpreted with caution in correlation with other red cell parameters and the patient's clinical condition. RDW 13.0 11.0 - 15.0 % [facility] 67 Platelet Count 287 140 - 400 Thousand/u L [facility] 67 MPV 10.7 7.5 - 12.5 fL [facility] 67 Absolute Neutrophils 2,083 1,500 - 7,800 cells/uL [facility] 67 Absolute Lymphocytes 2,093 850 - 3,900 cells/uL [facility] 67 Absolute Monocytes 384 200 - 950 cells/uL [facility] 67 Absolute Eosinophils 240 15 - 500 cells/uL [facility] 67 Absolute Basophils 0 0 - 200 cells/uL [facility] 67 Neutrophils 43.4 % [facility] 67 Lymphocytes 43.6 % [facility] 67 Monocytes 8.0 % [facility] 67 Eosinophils 5.0 % [facility] 67 Basophils 0.0 % [facility] 67 Blood Venous blood / Unknown 03/19/2025 10:31 AM EDT 03/19/2025 10:33 AM EDT Narrative [facility] - 03/25/2025 3:12 AM EDT FASTING:YES FASTING: YES Resulting Agency Comment Performing Organization Information: Site ID: [id number] Name: [facility] Address: [address] [place] [phone] Director: Hao Ordonez M.D. Roxy Rucker DO LAB BLOOD ORDERABLES Fi nal Result Performing Organization Address [facility] Co de Phone Number [facility] [address], [place] [address], [place] [facility] 67 * Urine Culture (03/19/2025 10:31 AM EDT) Pathologist [facility] Culture SEE NOTE [facility] 67 Comment: CULTURE, URINE, ROUTINE Micro Number: [id number] Test Status: Final Specimen Source: Urine, clean catch Specimen Quality: Adequate Result: Less than 10,000 CFU/mL of single Gram positive organism isolated. No further testing will be performed. If clinically indicated, recollection using a method to minimize contamination, with prompt transfer to Urine Culture Transport Tube, is recommended. Your request to have a duplicate copy faxed has been acknowledged. Queued to: [id number] Urine Urine specimen collection, clean catch / Unknown 03/19/2025 10:31 AM EDT 03/19/2025 10:33 AM EDT Narrative [facility] - 03/25/2025 3:12 AM EDT FASTING:YES FASTING: YES Resulting Agency Comment Performing Organization Information: Site ID: [id number] Name: [facility] Address: [address] [place] [phone] Director: Hao Ordonez M.D. us Roxy Rucker DO LAB MICROBIOLOGY - GENE RAL ORDERABLES Final Result Performing Organization Address [facility] de Phone Number [facility] [address], [place] [address], [place] [facility] 67 * Immunofixation electrophoresis (03/19/2025 10:31 AM EDT) INTERPRETATION No monoclonal proteins detected. [facility] 67 Blood Venous blood / Unknown 03/19/2025 10:31 AM EDT 03/19/2025 10:33 AM EDT Narrative [facility] - 03/25/2025 3:12 AM EDT FASTING:YES FASTING: YES Resulting Agency Comment Performing Organization Information: Site ID: [id number] Name: [facility] Address: [address] [place] [phone] Director: Hao Ordonez M.D. Roxy Rucker DO LAB BLOOD ORDERABLES Fi nal Result Performing Organization Address [facility] Co de Phone Number Present [address] [place] [phone], [employer] [facility] 67 * C-reactive protein (03/19/2025 10:31 AM EDT) Pathologist [facility] C-Reactive Protein <3.0 <8.0 mg/L [facility] Blood Venous blood / Unknown 03/19/2025 10:31 AM EDT 03/19/2025 10:33 AM EDT Narrative [facility] - 03/25/2025 3:12 AM EDT FASTING:YES FASTING: YES Resulting Agency Comment Performing Organization Information: Site ID: [id number] Name: [facility] Address: [address] [place] [phone] Director: Hao Ordonez M.D. Roxy Rucker DO LAB BLOOD ORDERABLES Fi nal Result Performing Organization Address [facility] Co de Phone Number Present [address] [address], [employer] [facility] 67 * Protein Electro, w/TProt, Serum (03/19/2025 10:31 AM EDT) Protein, Total 7.1 6.1 - 8.1 g/dL [facility] 67 Albumin 4.5 3.8 - 4.8 g/dL [facility] 67 Alpha 1 Globulin 0.2 0.2 - 0.3 g/dL [facility] 67 Alpha 2 Globulin 0.7 0.5 - 0.9 g/dL [facility] 67 Beta 1 Globulin 0.5 0.4 - 0.6 g/dL [facility] 67 Beta 2 Globulin 0.4 0.2 - 0.5 g/dL [facility] 67 Gamma Globulin 0.9 0.8 - 1.7 g/dL [facility] 67 INTERPRETATION SEE COMMENT [facility] 67 Comment: Normal Serum Protein Electrophoresis Pattern. No abnormal protein bands (M-protein) detected. 03/19/2025 10:3 1 AM EDT 03/19/2025 10:33 AM EDT Narrative [facility] - 03/25/2025 3:12 AM EDT FASTING:YES FASTING: YES Resulting Agency Comment Performing Organization Information: Site ID: [id number] Name: [facility] Address: [address] [place] [phone] Director: Hao Ordonez M.D. Roxy Rucker PPLCONNECT LAB BLOOD ORDERABLES Fi nal Result Performing Organization Address [facility] de Phone Number Present [address] [address], [place] [facility] 67 * (ABNORMAL) Lipase (03/19/2025 10:31 AM EDT) Lipase 157(H) 7 - 60 U/L [facility] 67 Blood Venous blood / Unknown 03/19/2025 10:31 AM EDT 03/19/2025 10:33 AM EDT Narrative [facility] - 03/25/2025 3:12 AM EDT FASTING:YES FASTING: YES Resulting Agency Comment Performing Organization Information: Site ID: [id number] Name: [facility] Address: [address] [place] [phone] Director: Hao Ordonez M.D. Roxy Rucker PPLCONNECT LAB BLOOD ORDERABLES Fi nal Result Performing Organization Address [facility] de Phone Number Present [address] [address], [place] [facility] 67 * (ABNORMAL) IgA (03/19/2025 10:31 AM EDT) Immunoglobulin A 347(H) 47 - 310 mg/dL [facility] 67 Blood Venous blood / Unknown 03/19/2025 10:31 AM EDT 03/19/2025 10:33 AM EDT Narrative [facility] - 03/25/2025 3:12 AM EDT FASTING:YES FASTING: YES Resulting Agency Comment Performing Organization Information: Site ID: [id number] Name: [facility] Address: [address] [place] [phone] Director: Hao Ordonez M.D. Roxy Rucker DO LAB BLOOD ORDERABLES Fi nal Result Performing Organization Address [facility] Co de Phone Number [facility] [address] [address], [place] [facility] 67 * IgM (03/19/2025 10:31 AM EDT) Immunoglobulin M 115 50 - 300 mg/dL [facility] 67 Blood Venous blood / Unknown 03/19/2025 10:31 AM EDT 03/19/2025 10:33 AM EDT Narrative [facility] - 03/25/2025 3:12 AM EDT FASTING:YES FASTING: YES Resulting Agency Comment Performing Organization Information: Site ID: [id number] Name: [facility] Address: [address] [place] [phone] Director: Hao Ordonez M.D. Roxy Rucker DO LAB BLOOD ORDERABLES Fi nal Result Performing Organization Address [facility] Co de Phone Number Present [address] [phone], [place] [facility] 67 * IgG (03/19/2025 10:31 AM EDT) IgG 883 600 - 1,640 mg/dL [facility] 67 Blood Venous blood / Unknown 03/19/2025 10:31 AM EDT 03/19/2025 10:33 AM EDT Narrative [facility] - 03/25/2025 3:12 AM EDT FASTING:YES FASTING: YES Resulting Agency Comment Performing Organization Information: Site ID: [id number] Name: [facility] Address: [address] [place] [phone] Director: Hao Ordonez M.D. Roxy Rucker DO LAB BLOOD ORDERABLES Fi nal Result Performing Organization Address [facility] de Phone Number [facility] [address] [phone], [place] [facility] 67 * (ABNORMAL) Amylase (03/19/2025 10:31 AM EDT) Amylase 115(H) 21 - 101 U/L [facility] 67 Blood Venous blood / Unknown 03/19/2025 10:31 AM EDT 03/19/2025 10:33 AM EDT Narrative [facility] - 03/25/2025 3:12 AM EDT FASTING:YES FASTING: YES Resulting Agency Comment Performing Organization Information: Site ID: [id number] Name: [facility] Address: [address] [place] [phone] Director: Hao Ordonez M.D. us Roxy Rucker DO LAB BLOOD ORDERABLES Fi nal Result Performing Organization Address [facility] de Phone Number [facility] [address] [address], [employer] [facility] 67 * Comprehensive metabolic panel (03/19/2025 10:31 AM EDT) Glucose 87 65 - 99 mg/dL [facility] 67 Comment: Fasting reference interval UREA NITROGEN (BUN) 16 7 - 25 mg/dL [facility] 67 Creatinine 0.84 0.50 - 0.99 mg/dL [facility] 67 EGFR 86 > OR = 60 mL/min/1. 73m2 [facility] 67 BUN/Creatinine Ratio SEE NOTE: 6 - 22 (calc) [facility] 67 Comment: Not Reported: BUN and Creatinine are within reference range. SODIUM 140 135 - 146 mmol/L [facility] 67 POTASSIUM 4.3 3.5 - 5.3 mmol/L [facility] 67 CHLORIDE 102 98 - 110 mmol/L [facility] 67 CARBON DIOXIDE 27 20 - 32 mmol/L [facility] 67 CALCIUM 9.8 8.6 - 10.2 mg/dL [facility] 67 Protein, Total 7.1 6.1 - 8.1 g/dL [facility] 67 Albumin 4.7 3.6 - 5.1 g/dL [facility] 67 GLOBULIN 2.4 1.9 - 3.7 g/dL (calc) [facility] 67 A/G Ratio 2.0 1.0 - 2.5 (calc) [facility] 67 BILIRUBIN, TOTAL 0.3 0.2 - 1.2 mg/dL [facility] 67 ALKALINE PHOSPHATASE 61 31 - 125 U/L [facility] 67 AST 29 10 - 35 U/L [facility] 67 ALT 21 6 - 29 U/L [facility] 67 Blood Venous blood / Unknown 03/19/2025 10:31 AM EDT 03/19/2025 10:33 AM EDT Narrative [facility] - 03/25/2025 3:12 AM EDT FASTING:YES FASTING: YES Resulting Agency Comment Performing Organization Information: Site ID: [id number] Name: [facility] Address: [address] [place] [phone] Director: Hao Ordonez M.D. us Roxy Rucker DO LAB BLOOD ORDERABLES Fi nal Result [facility] [address], [place] [address], [facility] * Hepatitis C Antibody with Reflex to HCV RNA,PCR w/Reflex to Genotype, LiPA (08/25/2021 12:00 AM EST) HEPATITIS C ANTIBODY NON-REACTI VE NON-REACTI VE [facility] 67 SIGNAL TO CUT-OFF 0.01 <1.00 [facility] 67 Comment: HCV antibody was non-reactive. There is no laboratory evidence of HCV infection. In most cases, no further action is required. However, if recent HCV exposure is suspected, a test for HCV RNA (test code 17145) is suggested. For additional information, please refer to http://education.[employer].me/faq/NRA558 (This link is being provided for informational/ educational purposes only.) Blood Venous blood / Unknown 08/25/2021 08/25/2021 12:24 PM EST Narrative [facility] - 08/28/2021 11:07 PM EST CC: CORTES CANO PCP FASTING:NO FASTING: NO Resulting Agency Comment Performing Organization Information: Site ID: [id number] Name: [facility] Address: [address], [place] [address] Director: Hao Ordonez M.D. us Roxy Rucker DO LAB BLOOD ORDERABLES Fi nal Result [facility] [address], [place] [address], [place] [facility] 67 from Last 3 Months or Most Recently Relevant to Health Maintenance Insurance MEDICARE [employer] Care Teams Tiltrotor Crew Chief Relationship Specialty Start Date End Date Carolyn OATES [facility] Adult Medicine [address] [place] [address] Primary Care Provider Internal Medicine 03/05/25
--- OUTSIDE RECORDS SUMMARY | 2025-04-03 11:47 | XMS_ITS | Encounter Summary ---
Author Organization [facility] Address [address] [address] Phone Care Team Providers Care Tavern Keeper Name Role Phone Axel Graves MD Primary Care Provider [phone] Tom Ayon MD Unavailable [phone] Axel Graves MD Primary Care Provider [phone] Encounter Details Date Type Department Care Team (Late st Contact Info) Description 05/14/2020 Procedure Pass [facility] Cardiac US [address] [place] [address] Social History Tobacco Use Types Packs/Day Years [...] st Contact Info) Description 06/07/2024 Procedure Pass [facility] Cardiac US [address] [place] [address] 06/12/2026 9:30 AM EST Appointment [facility] Cardiac US [address] [place] [address] Yara Ingram, STRUCTURAL STEEL SHOP SUPERVISOR [address] [facility] [address] [place] [address] 06/12/2026 10:30 AM EST Office Visit [facility] Cardiovascular Medicine [address] [place] [address], 5th Floor, [address] [place] [address] Yara Ingram, STRUCTURAL STEEL SHOP SUPERVISOR [address] [facility] [address] [place] [address] [email or web address] documented as of this encounter Visit Diagnoses Not on filedocumented in this encounter Care Teams Tavern Keeper Relationship Specialty Start Date End Date Axel Graves MD [address] [place] [address] PCP - General Internal Medicine 03/05/15 04/14/21 Axel Graves MD [address] [place] [address] PCP - General Internal Medicine 04/15/21 Tom Ayon MD [address] [place] [address] [address] [place] [address] Merchant Miller Internal Medicine 01/07/17 documented as of this encounter Additional Source Comments The information contained in this document represents components of the legal health record. It is not the complete legal health record.[facility]
--- OUTSIDE RECORDS SUMMARY | 2025-04-03 11:47 | XMS_ITS | Encounter Summary ---
Author Organization [facility] Address [address] [facility] [address] [place] [address] Phone Care Team Providers Care Cuprous Chloride Operator Name Role Phone Axel Graves MD Primary Care Provider [phone] Tom Ayon MD Unavailable Axel Graves MD Primary Care Provider [phone] Encounter Details Date Type Department Care Team (Late st Contact Info) Description 05/12/2019 Documentation [facility] Cardiovascular Medicine [address] [facility], 5th Floor, [address] [place] [address] Noelle Parada NP [address] [place] [address] Social History Tobacco Use Types Packs/Day Years [...] st Contact Info) Description 06/07/2024 Procedure Pass [facility] Cardiac US [address] [place] [address] 06/12/2026 9:30 AM EST Appointment [facility] Cardiac US [address] [place] [address] Yara Ingram, MARKET RESEARCH SENIOR PROJECT MANAGER [address] [address] 06/12/2026 10:30 AM EST Office Visit [facility] Cardiovascular Medicine [address] [facility], 5th Floor, [address] [place] [address] Yara Ingram, MARKET RESEARCH SENIOR PROJECT MANAGER [address] [address] documented as of this encounter Visit Diagnoses Not on filedocumented in this encounter Care Teams Cuprous Chloride Operator Relationship Specialty Start Date End Date Axel Graves MD [address] [place] [address] PCP - General Internal Medicine 03/05/15 04/14/21 Axel Graves MD [address] [place] [address] PCP - General Internal Medicine 04/15/21 Tom Ayon MD [address] [place] [address] Orthodontic Technician Internal Medicine 01/07/17 documented as of this encounter Additional Source Comments The information contained in this document represents components of the legal health record. It is not the complete legal health record.[facility]
--- OUTSIDE RECORDS SUMMARY | 2025-04-03 11:47 | XMS_ITS | Encounter Summary ---
Author Organization [employer] [facility] Address [address] [place] [address] Care Team Providers Care Radar Engineering Teacher Name Role Phone Axel Graves MD Primary Care Provider Encounter Details Date Type Department Care Team ([facility] st Contact Info) Description 06/12/2020 Scanned Document Business Office [address] [place] [phone] Roxy Rucker, DO [address] [address] Social History Tobacco Use Types Packs/Day Years [...] Description 05/29/2025 10:30 AM EST Office Visit [facility] [address] [id number] Roxy Rucker DO [address] [id number] : Follow up 2-3 months, wait list for sooner appt. documented as of this encounter Visit Diagnoses Not on filedocumented in this encounter Care Teams Radar Engineering Teacher Relationship Specialty Start Date End Date Axel Graves MD [address] [place] [address] PCP - General 12/11/19 03/06/25 Carolyn OATES [facility] Adult Medicine [address] [place] [id number] Primary Care Provider Internal Medicine 03/05/25 documented as of this encounter
== END 2025-04-03 10:35 | disposition home or self-care (01) ==
LOC: HO.HPS 10:03
PROVIDERS: PCP Internal Medicine; Visit Provider Hospitalist
DX: J45.40 Moderate persistent asthma, uncomplicated (principal); M35.02 Sjogren syndrome with lung involvement; R91.1 Solitary pulmonary nodule; D64.9 Anemia, unspecified; B02.9 Zoster without complications
CPT/HCPCS: 99214